=== PATIENT | female | born 2000 | race Caucasian/White ===

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

== ENCOUNTER → 2020-01-06 | Outpatient (CLI) | payer MEDICAID ==
[~2020-01-06] MED LIST changes: +NITR-65 PO
== END ==
LOC: LABNPT 14:52
PROVIDERS: ATTEND Obstetrics & Gynecology
DX: O28.8 Other abnormal findings on antenatal screening of mother (principal)
CPT/HCPCS: 82570; 84156

== ENCOUNTER 2020-01-25 02:40 | Outpatient (CLI) | payer MEDICAID ==
[~2020-01-25] VITALS: Ht 162 cm; Wt 84.5 kg
--- NOTE | 2020-01-25 02:45 | NUR ---
CORONA SPAIN presented to unit via WC from ED, accompanied by STAFF AND FAMILY , with c/o CONTRACTIONS,FLUID LEAKAGE. CORONA SPAIN weighed, gowned, voided, and to bed. EFHM and TOCO applied, VS taken. CORONA SPAIN oriented to bed controls, call light, TV, heat, and A/C controls. FURTHER ASSESSMENTS TO FOLLOW.
[2020-01-25 02:48] VITALS: BP 0/0
[2020-01-25 03:15] LABS: BILIRUBIN,URINE NEGATIVE (NEGATIVE); CLARITY,URINE SL CLOUDY; COLOR,URINE YELLOW; GLUCOSE, URINE (UA) NEGATIVE (NEGATIVE); KETONES,URINE TRACE (NEGATIVE); LEUKOCYTE ESTERASE ,URINE 2+ (NEGATIVE); NITRITE,URINE NEGATIVE (NEGATIVE); PH,URINE 6.5 (5-9); PROTEIN,URINE NEGATIVE (NEGATIVE)
[2020-01-25 03:24] LABS: RBC,URINE 0-2 /HPF
[2020-01-25 03:25] LABS: AMORPHOUS SEDIMENT,UR FEW AMOR URATES /LPF; BACTERIA,URINE MODERATE /HPF; WBC,URINE 25-50 /HPF
--- NOTE | 2020-01-25 03:31 | NUR ---
notified of pt's arrival and complaint. assessment reported, along with u'a results and tracing. No new orders received.
[2020-01-25] MEDS ORDERED: D5 LR IV SOLUTION 1,000 ML IV SCH (03:45)
[2020-01-25 04:20] LABS: BILIRUBIN,URINE NEGATIVE (NEGATIVE); CLARITY,URINE CLEAR; COLOR,URINE AMBER; GLUCOSE, URINE (UA) NEGATIVE (NEGATIVE); KETONES,URINE NEGATIVE (NEGATIVE); LEUKOCYTE ESTERASE ,URINE NEGATIVE (NEGATIVE); NITRITE,URINE NEGATIVE (NEGATIVE); PROTEIN,URINE TRACE (NEGATIVE)
[2020-01-25 04:27] LABS: BASOPHILS % (AUTO) 0 % (0-10); EOSINOPHILS % (AUTO) 0 % (0-10); HEMATOCRIT 28 % (35-52); HEMOGLOBIN 8.8 G/DL (11.5-16.0); LYMPHOCYTES # (AUTO) 1.9 X 10^3 (1.0-4.0); LYMPHOCYTES % (AUTO) 20 % (12-44); MEAN CORPUSCULAR HEMOGLOBIN 25 PG (25-34); MEAN CORPUSCULAR HGB CONC 32 G/DL (32-36); MEAN CORPUSCULAR VOLUME 77 FL (80-99); MEAN PLATELET VOLUME 11.4 FL (7.4-10.4); MONOCYTES % (AUTO) 10 % (0-12); NEUTROPHILS # (AUTO) 6.5 X 10^3 (1.8-7.8); NEUTROPHILS % (AUTO) 69 % (42-75); PLATELET COUNT 173 10^3/uL (130-400); WHITE BLOOD COUNT 9.4 10^3/uL (4.3-11.0)
[2020-01-25 04:48] LABS: BACTERIA,URINE TRACE /HPF; RBC,URINE 0-2 /HPF
--- NOTE | 2020-01-25 04:51 | NUR ---
notified of lab results, sve, tracing. new orders received.
[2020-01-25] MEDS ORDERED: FERR-84 PO (05:21)
[2020-01-25] MEDS ORDERED: DOCO200C4 PO (05:21)
[2020-01-25] MEDS ORDERED: keflex (05:21)
--- NOTE | 2020-01-25 05:35 | NUR ---
Discharge instructions verbalized with pt. pt verbalized understanding. Labor precautions given. Pt denies any concern. pt dc'd home with mother at side. will follow up in office.
--- NOTE | 2020-01-25 08:41 | Discharge Summary ---
Discharge Summary 36 weeks gestation with false labor This patient with a clinical evaluation patient HELIO PEACE MD Jan 25, 2020 08:41
== END 2020-01-25 05:35 | disposition home or self-care (01) ==
LOC: WSo 02:40 → LDRP 02:41 → WSo 05:35
PROVIDERS: ATTEND Obstetrics & Gynecology
DX: O47.03 False labor before 37 completed weeks of gestation, third trimester (principal); Z3A.36 36 weeks gestation of pregnancy
CPT/HCPCS: 36415; 81000; 85025; 87088; 96360; 99214

== ENCOUNTER 2020-01-31 07:00 | Inpatient (IN) | payer MEDICAID ==
[2020-01-31] VITALS (50 sets, daily range): BP systolic 58–175; BP diastolic 52–78
[~2020-01-31] VITALS: Ht 162.5 cm; Wt 84.8 kg
[~2020-01-31 07:00] MED LIST changes: +DOCO200C4 PO; +FERR-84 PO; +keflex
--- NOTE | 2020-01-31 07:03 | NUR ---
CORONA SPAIN admitted to room 3320-1, with an admitting diagnosis of induction of labor, on 01/31/20 from home via ambulation, accompanied by family.CORONA SPAIN introduced to surroundings, call light, bed controls, phone, TV, temperature control, lights, meal times, smoking policy, visitor policy, side rail policy, bathrooms and showers. Patient Rights given to patient in the handbook. CORONA SPAIN verbalizes understanding that [facility] is not responsible for the loss or damage to any personal effects or valuables that are kept in the patients posession during their hospitalization. The following Patient Care Plans were discussed with the patient: Discharge Planning, pain managment, epidural protocol, and oxytocin protocol. CORONA SPAIN verbalizes understanding of Interdisciplinary Patient Education. Patient and/or family were informed about the Rapid Response Team and its purpose.
[2020-01-31] MEDS ORDERED: D5 LR IV SOLUTION 1,000 ML IV ONE (07:46)
[2020-01-31] MEDS ORDERED: OXYTOCIN PRE-MIX DRIP 500 ML IV ONE (07:47)
[2020-01-31] MEDS ORDERED: D5 LR IV SOLUTION 1,000 ML IV SCH (07:59)
[2020-01-31] MEDS ORDERED: OXYTOCIN PRE-MIX DRIP 500 ML IV SCH ×2 (07:59→16:20)
[2020-01-31 08:07] LABS: BASOPHILS % (AUTO) 0 % (0-10); EOSINOPHILS # (AUTO) 0.1 10^3/uL (0.0-0.3); EOSINOPHILS % (AUTO) 1 % (0-10); HEMATOCRIT 28 % (35-52); HEMOGLOBIN 8.8 G/DL (11.5-16.0); LYMPHOCYTES # (AUTO) 1.4 X 10^3 (1.0-4.0); LYMPHOCYTES % (AUTO) 19 % (12-44); MEAN CORPUSCULAR HEMOGLOBIN 24 PG (25-34); MEAN CORPUSCULAR HGB CONC 32 G/DL (32-36); MEAN CORPUSCULAR VOLUME 75 FL (80-99); MEAN PLATELET VOLUME 10.8 FL (7.4-10.4); MONOCYTES # (AUTO) 0.8 X 10^3 (0.0-1.0); MONOCYTES % (AUTO) 11 % (0-12); NEUTROPHILS # (AUTO) 5.2 X 10^3 (1.8-7.8); NEUTROPHILS % (AUTO) 69 % (42-75); PLATELET COUNT 178 10^3/uL (130-400); RED CELL DISTRIBUTION WIDTH 14.6 % (10.0-14.5); WHITE BLOOD COUNT 7.5 10^3/uL (4.3-11.0)
[2020-01-31] MEDS ORDERED: SUFENTA 0.6MCG/ML BUPIVA 0.125 100 ML ONE (08:09)
--- NOTE | 2020-01-31 08:28 | History & Physical ---
History and Physical Date Seen by Provider: Jan 31, 2020 Time Seen by Provider: 07:55 This patient is a 19-year-old 4 para 182 white female with a due date of February 18, 2020. She presents now at 37 weeks plus gestation for induction of labor on the advice of high-risk OB at [facility]. Her is complicated by gestational diabetes for which she is on metformin and blood sugars are adequately controlled. Her is also complicated by macrosomia/LGA. Her is also complicated by a right ureteral stone for which she was transferred to [facility] and 30 and gestation range. A repeat GBS culture was negative. Patient denies bleeding. Patient was seen at [facility] by the high-risk OB department 2 days ago where they recommended delivery before this weekend. Patient is admitted now for induction of labor. Allergies are to Zithromax which causes hives Medications are vitamins and Prozac and metformin Medical social and surgical histories are per the antepartum record HEENT exam is normal Neck supple no lymphadenopathy no thyromegaly Abdomen is gravid soft nontender nondistended Extremities show clubbing cyanosis. There is no Homans sign. Pelvic exam is pending with the most recent pelvic exam in clinic showed a cervix centimeters dilated over 50 percent effaced -1 station vertex presentation soft and mid station cervix Lab work is pending monitor shows a normal heart rate pattern with regular contractions Assessment and plan term in a patient with gestational diabetes that has been well controlled on metformin. Her is complicated by macrosomia and stones as well. Plan is for induction of labor. Patient's previous delivery was complicated by shoulder dystocia we are aware and alert to the potential as is the patient. We are prepared for potential delivery complications. 37+ weeks gestation with gestational diabetes admitted for induction of labor Allergies and Home Medications Allergies Coded Allergies: azithromycin (Verified Allergy, Unknown, HIVES, 01/21/19) Home Medications Nbs269/Iron Fumarate/FA/Dss 1 Each Tablet, 1 EACH PO DAILY, (Reported) Patient Home Medication List Home Medication List Reviewed: Yes HELIO PEACE MD Jan 31, 2020 07:59
[2020-01-31] MEDS ORDERED: fentaNYL INJECTION 100 MCG/2 ML AMP ONE (09:07)
[2020-01-31] MEDS ORDERED: BUPIVACAINE 0.25% 30 ML (SENSORCAINE) VIAL ONE (09:07)
[2020-01-31] MEDS ORDERED: LACTATED RINGERS 1,000 ML IV ONE (11:27)
[2020-01-31] MEDS ORDERED: EPIDURAL (SUFENTA 0.6MCG/ML BUPIVA 0.125%) 100 ML BAG EPI SCH (11:30)
[2020-01-31] MEDS ORDERED: CATHETER FLUSH 10 ML SYR IV PRN (11:30)
[2020-01-31] MEDS ORDERED: NALOXONE 0.4 MG/ML 1 ML (NARCAN) VIAL IV PRN (11:30)
[2020-01-31] MEDS ORDERED: diphenhydrAMINE 50 MG/ML INJ (BENADRYL) IV PRN (11:30)
[2020-01-31] MEDS ORDERED: ONDANSETRON 4 MG/2 ML (SDV) Z0FRAN IV PRN (11:30)
[2020-01-31] MEDS ORDERED: IBUPROFEN 800 MG (MOTRIN) TAB PO ONE (16:14)
[2020-01-31] MEDS ORDERED: MEASLES,MUMPS,RUBELLA 1 EA INJ SC ONE (16:30)
[2020-01-31] MEDS ORDERED: oxyCODONE/APAP 5/325MG (PERCOCET 5) TABLET PO PRN (16:30)
[2020-01-31] MEDS ORDERED: BENZOCAINE/MENTHOL (DERMOPLAST) 60 ML CAN TP PRN (16:30)
[2020-01-31] MEDS ORDERED: KETOROLAC 30 MG/ML VIAL IVP SCH (16:30)
[2020-01-31] MEDS ORDERED: TETANUS,DIPTH,PERTUSS P/F (BOOSTRIX) 0.5 ML VIAL IM ONE (16:30)
[2020-01-31] MEDS ORDERED: ONDANSETRON 4 MG/2 ML (SDV) Z0FRAN IVP PRN (16:30)
[2020-01-31] MEDS: DOCUSATE SODIUM 100 MG (COLACE) CAP PO SCH (20:24)
--- NOTE | 2020-01-31 20:38 | NUR ---
pt assisted to the bathroom. positive void. pt ambulated back to the bed. assessment completed. pt c/o cramping. percocet given.
--- NOTE | 2020-02-01 00:28 | OPERATIVE REPORT ---
DATE OF SERVICE: 01/31/2020 DELIVERY NOTE The patient delivered by term spontaneous vaginal delivery at 37 and 3/7 weeks' gestation a viable male with Apgars of 9 and 9 at 1 and 5 minutes respectively, weight of 9 pounds 5 ounces, time of 1553. Had cord blood pH was 7.26. The infant was delivered over an intact perineum under epidural analgesia. We did encounter a [id number] shoulder dystocia after delivery of the head. It was approximately 45 seconds to delivery of the anterior shoulder, which was the left. With the head delivered and the shoulder somewhat locked behind the pubic bone, Hugo was employed as well as suprapubic pressure from the patient's right to her left and then finally Colbert maneuver was used to rotate the baby's anterior shoulder from the patient's right to her left, which was anterior to the baby. At approximately 45 degrees rotation, the shoulder released and then the delivery was completed spontaneous and atraumatic. The infant was bulb suctioned on completion of delivery. The had spontaneous cry, moved all extremities, had excellent tone, reflexes, and was quickly pink. Again, Apgars were 9 and 9 at 1 and 5 minutes respectively. Infant was experiencing some discoloration of the forehead and caput secondary to the tight pressure and very rapid descent from the -0 station to delivery with 5 or 6 pushes. After the umbilical cord was pulseless, it was doubly clamped, the father cut the cord, the baby was taken to the warmer at mom's request. The placenta delivered spontaneously Fontaine after obtaining cord bloods. The cervix, vagina, rectum, and perineum were examined and found intact. Sponge and needle counts were correct on completion of delivery and the post-delivery exam. Estimated blood loss was around 200 mL. The patient tolerated the delivery and the exam well and remained in the LDR for recovery. The baby remained with the mom. Job ID: [id number] DocumentID: [id number] Dictated Date: 01/31/2020 16:12:30 Fire Sprinkler Designer Date: 02/01/2020 00:27:11 Dictated By: HELIO PEACE MD MTDD
[2020-02-01] MEDS ORDERED: IBUPROFEN 800 MG (MOTRIN) TAB PO ONE ×2 (00:41→05:38)
[2020-02-01] MEDS: IBUPROFEN 800 MG (MOTRIN) TAB PO SCH ×4 (00:52→20:05)
[2020-02-01 01:09] VITALS: BP 93/55
[2020-02-01 05:50] VITALS: BP 106/67
[2020-02-01 09:15] VITALS: BP 118/72
--- NOTE | 2020-02-01 10:34 | Progress Note ---
Standard Progress Note Progress Notes/Assess & Plan Date Seen by a Provider: Feb 01, 2020 Time Seen by a Provider: 10:33 Progress/Assessment & Plan This patient is without complaint. She is ambulating, voiding, tolerating oral intake well and has good pain control. Patient denies chest pain, denies shortness of breath, denies vomiting, and denies headache. Vital Signs 01/31/20 02/01/20 14:35 05:50 Temp 37.0 Pulse 94 Resp 20 B/P (MAP) 106/67 (80) Pulse Ox 95 O2 Delivery Room Air Vital signs are stable. Patient is afebrile. The abdomen is benign. The fundus is firm below the umbilicus and nontender. Extremities show no clubbing cyanosis. Homans sign. There is some pretibial pitting edema that is normal. Assessment and plan day number 1 status post term spontaneous vaginal delivery at 37-3/7 weeks gestation. Patient doing well and will receive routine convalescence care Final Diagnosis 37+ week spontaneous vaginal delivery HELIO PEACE MD Feb 01, 2020 10:34
[2020-02-01] MEDS ORDERED: OXYC1TAB87 PO (10:36)
[2020-02-01] MEDS ORDERED: DCS100C PO (10:36)
[2020-02-01] MEDS ORDERED: IBUP-1780 PO (10:36)
--- NOTE | 2020-02-01 10:37 | Discharge Inst-Surgical ---
Discharge Inst-Surgical Depart Medication/Instructions New, Converted or Re-Newed RX: RX on Chart Consults/Follow Up Patient Instructions: As directed Orders & Referrals Follow Up Appt: Call to make follow up appt. for patient in 4 weeks. Activity Per routine post vaginal delivery instructions. Please call in RX to patient pharmacy. Diet as tolerated Patient may shower or tub bathe as desired. Activity Activity as Tolerated: No Diet Discharge Diet: No Restrictions HELIO PEACE MD Feb 01, 2020 10:37
--- NOTE | 2020-02-01 11:37 | Anesthesia-Regional Post-Op ---
Regional Patient Condition Mental Status: Alert, Oriented x3 Circulation: Same as Pre-Op Headache: Absent Sensation: Full Recovery Motor Block: Absent Post Op Complications Complications None Follow Up Care/Instructions Patient Instructions None needed. Anesthesia/Patient Condition Patient is doing well, no complaints, stable vital signs, no apparent adverse anesthesia problems. No complications reported per nursing. ORLANDO CONDE CRNA Feb 01, 2020 11:37
[2020-02-01] MEDS: DOCUSATE SODIUM 100 MG (COLACE) CAP PO SCH ×2 (13:53→20:05)
[2020-02-01 20:00] VITALS: BP 114/64
--- NOTE | 2020-02-01 20:00 | NUR ---
pt sitting up in bed, just finished in the shower. assessment completed. pt denies any concerns or needs. will continue to monitor.
[2020-02-02] MEDS: IBUPROFEN 800 MG (MOTRIN) TAB PO SCH ×2 (01:50→08:41)
[2020-02-02 01:51] VITALS: BP 129/67
[2020-02-02 08:40] VITALS: BP 119/66
[2020-02-02] MEDS: DOCUSATE SODIUM 100 MG (COLACE) CAP PO SCH (08:41)
--- NOTE | 2020-02-02 08:45 | NUR ---
PT IN BED, HOLDING . VS OBTAINED. MEDS GIVEN PO; SEE EMAR FOR FURTHER. INITIAL SHIFT ASSESSMENT COMPLETED; SEE INTERVENTION. FRESH ICE WATER PROVIDED. WHITE BOARD UPDATED. PT DENIES ANY NEEDS OR QUESTIONS AT THIS TIME. CALL LIGHT WITHIN REACH, BREAKFAST AT THE BEDSIDE.
--- NOTE | 2020-02-02 11:43 | NUR ---
RXS CALLED INTO [facility] - SPOKE WITH KADI ZUNIGA.
--- NOTE | 2020-02-02 12:00 | NUR ---
DISCHARGE PAPERS PROVIDED AND REVIEWED WITH PT, PT VERBALIZES UNDERSTANDING AND DENIES ANY QUESTIONS AT THIS TIME. PAPER SIGNED. WRITTEN RX ALSO PROVIDED AT THIS TIME. PT VOICES THAT SHE RECEIVED THE TDAP VACCINE APPROX A MONTH AGO. LUNCH TRAY DELIVERED TO BEDSIDE. SUPPLIES PROVIDED PER REQUEST. NO FURTHER NEEDS VOICED. CALL LIGHT WITHIN REACH.
--- NOTE | 2020-02-02 13:35 | NUR ---
DR. PEACE HERE TO SEE PT.
--- NOTE | 2020-02-02 13:37 | Progress Note ---
Standard Progress Note Progress Notes/Assess & Plan Date Seen by a Provider: Feb 02, 2020 Time Seen by a Provider: 13:36 Progress/Assessment & Plan This patient is without complaint. She is ambulating, voiding, tolerating oral intake well and has good pain control. Patient denies chest pain, denies shortness of breath, denies vomiting, and denies headache. Vital Signs 01/31/20 02/01/20 14:35 05:50 Temp 37.0 Pulse 94 Resp 20 B/P (MAP) 106/67 (80) Pulse Ox 95 O2 Delivery Room Air Vital signs are stable. Patient is afebrile. The abdomen is benign. The fundus is firm below the umbilicus and nontender. Extremities show no clubbing cyanosis. Homans sign. There is some pretibial pitting edema that is normal. Assessment and plan day number 1 status post term spontaneous vaginal delivery at 37-3/7 weeks gestation. Patient doing well and will receive routine convalescence care February 02, 2020 Patient is without complaint. She is ambulating, voiding, tolerating oral intake well and has good pain control. Patient is requesting discharge home. Vital Signs Date Time Temp Pulse Resp B/P (MAP) Pulse Ox O2 Delivery O2 Flow Rate FiO2 02/02/20 08:40 37.0 75 18 119/66 (83) 96 Room Air 02/02/20 01:51 36.8 92 20 129/67 (87) Room Air 02/01/20 20:00 36.6 89 20 114/64 (81) Room Air Patient vital signs are stable she is afebrile. The abdomen is benign. Fundus is firm below the umbilicus and nontender. Extreme show no clubbing cyanosis. There is no Homans sign. There is some pretibial pitting edema that is within normal limits. Assessment and plan day number 2 status post term spontaneous vaginal delivery doing well. Plan is for discharge home with follow-up in clinic Final Diagnosis 37+ week spontaneous vaginal delivery HELIO PEACE MD Feb 02, 2020 13:37
--- NOTE | 2020-02-02 14:30 | NUR ---
PT DISCHARGED FROM -310 TO PERSONAL AUTO VIA AMBULATORY IN STABLE CONDITION ACC BY S/O, VERONICA AND Gustavo GAMEZ RN.
--- OUTSIDE RECORDS SUMMARY | 2020-02-04 04:42 | XMS REPORT | Continuity of Care Document ---
Author Organization Unknown Address Unknown Phone Unavailable Allergies Active Description Code Type Severity Reaction Onset Reported/Identified Relationship to Patient Clinical Status Yes azithromycin [id number] Drug Allergy Unknown HIVES 01/21/2019 Medications There is no data. Problems Date Dx Coded Attending Type Code Diagnosis Diagnosed By 01/22/2019 NALINI AUSTIN, CHRISTIN T Ot O20. 0 THREATENED 01/22/2019 NALINI AUSTIN, CHRISTIN T Ot O20. 9 HEMORRHAGE IN EARLY , UNSPECIFI 01/22/2019 NALINI AUSTIN, CHRISTIN T Ot Z3A. 01 LESS THAN 8 WEEKS GESTATION OF 01/22/2019 NALINI AUSTIN CHRISTIN T Ot Z88. 1 ALLERGY STATUS TO OTHER ANTIBIOTIC AGENT 01/23/2019 NALINI AUSTIN, CHRISTIN T Ot O20. 0 THREATENED 01/23/2019 NALINI AUSTIN, CHRISTIN T Ot O20. 9 HEMORRHAGE IN EARLY , UNSPECIFI 01/23/2019 NALINI AUSTIN, CHRISTIN T Ot Z3A. 01 LESS THAN 8 WEEKS GESTATION OF 01/23/2019 NALINI AUSTIN CHRISTIN T Ot Z88. 1 ALLERGY STATUS TO OTHER ANTIBIOTIC AGENT 05/06/2019 PHILLIP AUSTIN SAMY Ot O20.9 HEMORRHAGE IN EARLY , UNSPECIFI 05/06/2019 PHILLIP AUSTIN SAMY Ot Z3A.01 LESS THAN 8 WEEKS GESTATION OF 05/06/2019 PHILLIP AUSTIN SAMY Ot Z88.1 ALLERGY STATUS TO OTHER ANTIBIOTIC AGENT 05/09/2019 PHILLIP AUSTIN SAMY Ot O20.9 HEMORRHAGE IN EARLY , UNSPECIFI 05/09/2019 PHILLIP AUSTIN, SAMY Ot Z3A.01 LESS THAN 8 WEEKS GESTATION OF 05/09/2019 PHILLIP AUSTIN SAMY Ot Z88.1 ALLERGY STATUS TO OTHER ANTIBIOTIC AGENT 07/15/2019 CLYDE DUARTE, HUY Mckeon Ot M54. 5 LOW BACK PAIN 07/15/2019 HUY TANG MD Ot O23. 41 UNSP INFCT OF URINARY TRACT IN 07/15/2019 HUY TANG MD Ot Z3A. 00 WEEKS OF GESTATION OF NOT SPEC 07/15/2019 CLYDE DUARTE, HUY Mckeon Ot Z88. 1 ALLERGY STATUS TO OTHER ANTIBIOTIC AGENT 07/17/2019 CLYDE DUARTE, HUY Mckeon Ot M54. 5 LOW BACK PAIN 07/17/2019 CLYDE DUARTE, HUY Mckeon Ot O23. 41 UNSP INFCT OF URINARY TRACT IN 07/17/2019 CLYDE DUARTE, HUY Mckeon Ot Z3A. 00 WEEKS OF GESTATION OF NOT SPEC 07/17/2019 CLYDE DUARTE, HUY Mckeon Ot Z88. 1 ALLERGY STATUS TO OTHER ANTIBIOTIC AGENT 10/03/2019 CALVIN DUARTE, RHODA T Ot O26.892 OT RELATED CONDITIONS, SECOND 10/03/2019 CALVIN DUARTE, RHODA T Ot R42 DIZZINESS AND GIDDINESS 10/03/2019 CALVIN DUARTE, RHODA T Ot R51 HEADACHE 10/03/2019 CALVIN DUARTE, RHODA T Ot Z3A.20 20 WEEKS GESTATION OF 10/03/2019 CALVIN DUARTE, RHODA T Ot Z88.1 ALLERGY STATUS TO OTHER ANTIBIOTIC AGENT 10/07/2019 CALVIN DUARTE, RHODA T Ot O26.892 OTH RELATED CONDITIONS, SECOND 10/07/2019 CALVIN DUARTE, RHODA T Ot R42 DIZZINESS AND GIDDINESS 10/07/2019 CALVIN DUARTE, RHODA T Ot R51 HEADACHE 10/07/2019 CALVIN DUARTE, RHODA T Ot Z3A.20 20 WEEKS GESTATION OF 10/07/2019 CALVIN DUARTE, RHODA T Ot Z88.1 ALLERGY STATUS TO OTHER ANTIBIOTIC AGENT 11/01/2019 HELIO PEAEC MD Ot K59.00 CONSTIPATION, UNSPECIFIED 11/01/2019 HELIO PEACE MD Ot O26.892 OTH RELATED CONDITIONS, SECOND 11/01/2019 HELIO PEACE MD Ot Z3A.26 26 WEEKS GESTATION OF 11/02/2019 HELIO PEACE MD Ot N88.8 OTHER SPECIFIED NONINFLAMMATORY DISORDER 11/06/2019 HELIO PEACE MD Ot K59.00 CONSTIPATION, UNSPECIFIED 11/06/2019 HELIO PEACE MD Ot O26.892 OTH RELATED CONDITIONS, SECOND 11/06/2019 HELIO PEACE MD, Ot Z3A.26 26 WEEKS GESTATION OF 11/08/2019 HELIO PEACE MD, Ot N88.8 OTHER SPECIFIED NONINFLAMMATORY DISORDER 11/21/2019 TRACY ZARAGOZA MD Ot M54.9 DORSALGIA, UNSPECIFIED 11/21/2019 TRACY ZARAGOZA MD, Ot M62.830 MUSCLE SPASM OF BACK 11/21/2019 TRACY ZARAGOZA MD Ot O99.89 OTH DISEASES AND CONDITIONS COMPL PREG/C 11/21/2019 TRACY ZARAGOZA MD, Ot Z3A.27 27 WEEKS GESTATION OF 11/21/2019 TRACY ZARAGOZA MD, Ot Z88.1 ALLERGY STATUS TO OTHER ANTIBIOTIC AGENT 11/26/2019 TRACY ZARAGOZA MD, Ot M54.9 DORSALGIA, UNSPECIFIED 11/26/2019 TRACY ZARAGOZA MD, Ot M62.830 MUSCLE SPASM OF BACK 11/26/2019 TRACY ZARAGOZA MD Ot O99.89 OTH DISEASES AND CONDITIONS COMPL PREG/C 11/26/2019 TRACY ZARAGOZA MD, Ot Z3A.27 27 WEEKS GESTATION OF 11/26/2019 TRACY ZARAGOZA MD, Ot Z88.1 ALLERGY STATUS TO OTHER ANTIBIOTIC AGENT 12/18/2019 HELIO PEACE MD Ot O28.8 OTHER ABNORMAL FINDINGS ON SCR 12/19/2019 HELIO PEACE MD Ot E86.0 DEHYDRATION 12/19/2019 HELIO PEACE MD, Ot N12 TUBULO-INTERSTITIAL NEPHRITIS, NOT SPCF 12/19/2019 HELIO PEACE MD, Ot O23.03 INFECTIONS OF KIDNEY IN , THIRD 12/19/2019 HELIO PEACE MD, Ot O24.419 GESTATIONAL DIABETES MELLITUS IN PREGNAN 12/19/2019 HELIO PEACE MD, Ot O99.283 ENDO, NUTRITIONAL AND METAB DISEASES COM 12/19/2019 HELIO PEACE MD, Ot Z3A.32 32 WEEKS GESTATION OF 12/27/2019 HELIO PEACE MD, Ot 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 12/27/2019 HELIO PEACE MD, Ot O99.89 OT DISEASES AND CONDITIONS COMPL PREG/C 12/27/2019 HEILO PEACE MD, Ot Z3A.32 32 WEEKS GESTATION OF 12/27/2019 HELIO PEACE MD, Ot 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 Results Test Result Range SUREPATH PAP RFX HPV mRNA E6/E7 - 10:59 CLINICAL INFORMATION: NRG LMP: NRG PREV. PAP: NRG PREV. BX: NRG SOURCE: NRG STATEMENT OF ADEQUACY: NR INTERPRETATION/RESULT: NR FUSING MACHINE TENDER: NRG COMMENT NR Automated blood complete blood count (he mogram) panel - 01/21/19 23:28 Blood leukocytes automated count (number/volume) 10.6 10*3/uL 4.3-11.0 Blood erythrocytes automated count (number/volume) 4.68 10*6/uL 4.35-5.85 Venous blood hemoglobin measurement (mass/volume) 13.0 g/dL 11.5-16.0 Blood hematocrit (volume fraction) 40 % 35-52 Automated erythrocyte mean corpuscular volume 85 [ foz_us] 80-99 Automated erythrocyte mean corpuscular h emoglobin (mass per erythrocyte) 28 pg 25-34 Automated erythrocyte mean corpuscular h emoglobin concentration measurement (mass/volume) 33 g/dL 32-36 Automated erythrocyte distribution width ratio 13. 5 % 10.0- 14.5 Automated blood platelet count (count/volume) 251 10*3/uL 130-400 Automated blood platelet mean volume measurement 10.6 [foz_us] 7.4-10.4 Whole blood basic metabolic panel - 12/29 04/14 23:28 Serum or plasma sodium measurement (moles/volume) 141 mmol/L 135-145 Serum or plasma potassium measurement (moles/volume) 3.8 mmol/L 3.6-5.0 Serum or plasma chloride measurement (moles/volume) 106 mmol/L 98-107 Carbon dioxide 21 mmol/L 21-32 Serum or plasma anion gap determination (moles/volume) 14 mmol/L 5-14 Serum or plasma urea nitrogen measurement (mass/volume ) 6 mg/dL 7-18 Serum or plasma creatinine measurement (mass/volume) 0.61 mg/dL 0.60-1.30 Serum or plasma urea nitrogen/creatinine mass ratio 10 NRG Serum or plasma creatinine measurement w ith calculation of estimated glomerular filtration rate > NRG Serum or plasma glucose measurement (mass/volume) 109 mg/dL 70-105 Serum or plasma calcium measurement (mass/volume) 9.0 mg/dL 8.5-10.1 Serum or plasma choriogonadotropin measu rement (units/volume) - 01/21/19 23:28 Serum or plasma choriogonadotropin measurement (units/ volume) 843 m[iU]/mL <5 Chlamydia trachomatis DNA detection by p robe and signal amplification method - 01/21/19 23:45 Chlamydia trachomatis DNA detection by p robe and target amplification method Not Detected Not Detected Neisseria gonorrhoeae DNA detection by p robe and signal amplification method - 01/21/19 23:45 Gonorrhea amp DNA-urine Not Detected No t Detected HCG, QUANTITATIVE - 01/22/19 10:45 HCG, TOTAL, QN 850 mIU/mL NR PATHOLOGY REPORT (TISSUE PAHOLOGY) - 14:00 A SOURCE NRG A GROSS DESCRIPTION NRG A DIAGNOSIS NRG CLINICAL INFORMATION NRG PATHOLOGIST NRG HCG, QUANTITATIVE - 01/24/19 09:15 HCG, TOTAL, QN 103 mIU/mL NRG CULTURE, THROAT - 02/12/19 14:38 CULTURE, THROAT SEE NOTE NRG CULTURE, URINE - 03/22/19 11:07 CULTURE, URINE, ROUTINE SEE NOTE NRG TSH w/ FREE T4 - 03/22/19 11:19 TSH 1.01 mIU/L NRG T4, FREE 1.1 ng/dL 0.8-1.4 TEST, SERUM (QUAL) - 04/29/19 16:59 HCG, TOTAL, QL POSITIVE See Note: GC/CHLAMYDIA (SWAB OR URINE)-RAPID - 03/15 15:36 CHLAMYDIA TRACHOMATIS RNA, TMA NOT DETECTED NOT DETECTED NEISSERIA GONORRHOEAE RNA, TMA NOT DETECTED NOT DETECTED COMMENT NRG HCG, QUANTITATIVE - 04/30/19 16:09 HCG, TOTAL, QN 85 mIU/mL NRG HCG, QUANTITATIVE - 05/02/19 14:48 HCG, TOTAL, QN 93 mIU/mL NRG HCG, QUANTITATIVE - 05/06/19 15:01 HCG, TOTAL, QN 74 mIU/mL NRG Complete blood count (CBC) with automate d white blood cell (WBC) differential - 05/06/19 18:45 Blood leukocytes automated count (number/volume) 9.6 10*3/uL 4.3-11.0 Blood erythrocytes automated count (number/volume) 4.64 10*6/uL 4.35-5.85 Venous blood hemoglobin measurement (mass/volume) 13.3 g/dL 11.5-16.0 Blood hematocrit (volume fraction) 39 % 35-52 Automated erythrocyte mean corpuscular volume 85 [ foz_us] 80-99 Automated erythrocyte mean corpuscular h emoglobin (mass per erythrocyte) 29 pg 25-34 Automated erythrocyte mean corpuscular h emoglobin concentration measurement (mass/volume) 34 g/dL 32-36 Automated erythrocyte distribution width ratio 13. 2 % 10.0- 14.5 Automated blood platelet count (count/volume) 238 10*3/uL 130-400 Automated blood platelet mean volume measurement 10.5 [foz_us] 7.4-10.4 Automated blood neutrophils/100 leukocytes 64 % 42-75 Automated blood lymphocytes/100 leukocytes 27 % 12-44 Blood monocytes/100 leukocytes 7 % 0-12 Automated blood eosinophils/100 leukocytes 1 % 0-10 Automated blood basophils/100 leukocytes 0 % 0-10 Blood neutrophils automated count (number/volume) 6.2 10*3 1.8-7.8 Blood lymphocytes automated count (number/volume) 2.5 10*3 1.0-4.0 Blood monocytes automated count (number/volume) 0. 7 10*3 0.0-1.0 Automated eosinophil count 0.1 10*3/uL 0 .0-0.3 Automated blood basophil count (count/volume) 0.0 10*3/uL 0.0-0.1 Serum or plasma choriogonadotropin measu rement (units/volume) - 05/06/19 18:45 Serum or plasma choriogonadotropin measurement (units/ volume) 50 m[iU]/mL <5 Rh - 05/06/19 18:45 WRISTBAND NUMBER TNP NRG Rh D AG - POSITIVE NRG HCG, QUANTITATIVE - 05/13/19 14:46 HCG, TOTAL, QN <2 mIU/mL NRG PROGESTERONE - 06/13/19 14:56 PROGESTERONE 27.5 ng/mL NRG HCG, QUANTITATIVE - 06/13/19 14:56 HCG, TOTAL, QN 803 mIU/mL NRG Complete urinalysis with reflex to cultu re - 07/15/19 07:04 Urine color determination YELLOW NRG Urine clarity determination CLOUDY NR G Urine pH measurement by test strip 6.0 5-9 Specific gravity of urine by test strip 1.025 1.016-1.022 Urine protein assay by test strip, semi-quantitative NEGATIVE NEGATIVE Urine glucose detection by automated test strip NE GATIVE NEGATIVE Erythrocytes detection in urine sediment by light micr oscopy 3+ NEGATIVE Urine ketones detection by automated test strip 3+ NEGATIVE Urine nitrite detection by test strip NEGATIVE NEGATIVE Urine total bilirubin detection by test strip NEGA TIVE NEGATIVE Urine urobilinogen measurement by automated test strip (mass/volume) 0.2 mg/dL NORMAL Urine leukocyte esterase detection by dipstick 2+ NEGATIVE Automated urine sediment erythrocyte cou nt by microscopy (number/high power field) [HPF] NRG Automated urine sediment leukocyte count by microscopy (number/high power field) [HPF] NRG Bacteria detection in urine sediment by light microsco py MODERATE NRG Squamous epithelial cells detection in u rine sediment by light microscopy 10-25 NRG Crystals detection in urine sediment by light microsco py NONE NRG Casts detection in urine sediment by light microscopy NONE NRG Mucus detection in urine sediment by light microscopy NONE NRG Complete urinalysis with reflex to culture YES NRG Bacterial urine culture - 07/15/19 07:04 Bacterial urine culture 3 OR MORE NRG COLONY COUNT >100,000/ML NRG FTX;REPORTABLE GRAM POSITIVE ISOLATES; SUGGESTING NRG FREE TEXT ENTRY 2 PROBABLE COLLECTION CONTAMINATIO N WITH NRG FREE TEXT ENTRY 3 SKIN NACHO. NO SUSCEPTIBILITY PE RFORMED. NRG Complete blood count (CBC) with automate d white blood cell (WBC) differential - 07/15/19 07:14 Blood leukocytes automated count (number/volume) 12.8 10*3/uL 4.3-11.0 Blood erythrocytes automated count (number/volume) 4.52 10*6/uL 4.35-5.85 Venous blood hemoglobin measurement (mass/volume) 13.6 g/dL 11.5-16.0 Blood hematocrit (volume fraction) 39 % 35-52 Automated erythrocyte mean corpuscular volume 85 [ foz_us] 80-99 Automated erythrocyte mean corpuscular h emoglobin (mass per erythrocyte) 30 pg 25-34 Automated erythrocyte mean corpuscular h emoglobin concentration measurement (mass/volume) 35 g/dL 32-36 Automated erythrocyte distribution width ratio 13. 3 % 10.0- 14.5 Automated blood platelet count (count/volume) 221 10*3/uL 130-400 Automated blood platelet mean volume measurement 10.8 [foz_us] 7.4-10.4 Automated blood neutrophils/100 leukocytes 69 % 42-75 Automated blood lymphocytes/100 leukocytes 22 % 12-44 Blood monocytes/100 leukocytes 9 % 0-12 Automated blood eosinophils/100 leukocytes 1 % 0-10 Automated blood basophils/100 leukocytes 0 % 0-10 Blood neutrophils automated count (number/volume) 8.8 10*3 1.8-7.8 Blood lymphocytes automated count (number/volume) 2.8 10*3 1.0-4.0 Blood monocytes automated count (number/volume) 1. 1 10*3 0.0-1.0 Automated eosinophil count 0.1 10*3/uL 0 .0-0.3 Automated blood basophil count (count/volume) 0.0 10*3/uL 0.0-0.1 Comprehensive metabolic panel - 07/15/19 07:14 Serum or plasma sodium measurement (moles/volume) 136 mmol/L 135-145 Serum or plasma potassium measurement (moles/volume) 3.7 mmol/L 3.6-5.0 Serum or plasma chloride measurement (moles/volume) 97 mmol/L 98-107 Carbon dioxide 19 mmol/L 21-32 Serum or plasma anion gap determination (moles/volume) 20 mmol/L 5-14 Serum or plasma urea nitrogen measurement (mass/volume ) 9 mg/dL 7-18 Serum or plasma creatinine measurement (mass/volume) 0.52 mg/dL 0.60-1.30 Serum or plasma urea nitrogen/creatinine mass ratio 17 NRG Serum or plasma creatinine measurement w ith calculation of estimated glomerular filtration rate > NRG Serum or plasma glucose measurement (mass/volume) 116 mg/dL 70-105 Serum or plasma calcium measurement (mass/volume) 9.6 mg/dL 8.5-10.1 Serum or plasma total bilirubin measurement (mass/volu me) 0.4 mg/dL 0.1-1.0 Serum or plasma alkaline phosphatase ortiz surement (enzymatic activity/volume) 56 U/L 40-136 Serum or plasma aspartate aminotransfera se measurement (enzymatic activity/volume) 16 U/L 5-34 Serum or plasma alanine aminotransferase measurement (enzymatic activity/volume) 12 U/L 0-55 Serum or plasma protein measurement (mass/volume) 7.5 g/dL 6.4-8.2 Serum or plasma albumin measurement (mass/volume) 4.6 g/dL 3.2-4.5 Lipase - 07/15/19 07:14 Lipase 32 U/L 8-78 Bacteria identification in genital speci men by aerobe culture - 07/15/19 07:38 QUANTITY OF GROWTH . NRG Bacteria identification in genital specimen by aerobe culture UVF NRG Microscopic examination by wet preparati on - 07/15/19 07:38 WET PREP RESULTS NO YEAST OBSERVED, NO TRICH OMONAS OBSERVED NRG Neisseria gonorrhoeae DNA detection by p robe and signal amplification method - 07/15/19 07:38 Gonorrhea amp DNA-urine Not Detected No t Detected Chlamydia trachomatis DNA detection by p robe and signal amplification method - 07/15/19 07:38 Chlamydia trachomatis DNA detection by p robe and target amplification method Not Detected Not Detected Complete urinalysis with reflex to cultu re - 10/03/19 14:30 Urine color determination YELLOW NRG Urine clarity determination CLOUDY NR G Urine pH measurement by test strip 6.0 5-9 Specific gravity of urine by test strip 1.025 1.016-1.022 Urine protein assay by test strip, semi-quantitative NEGATIVE NEGATIVE Urine glucose detection by automated test strip TR FLORECITA NEGATIVE Erythrocytes detection in urine sediment by light micr oscopy NEGATIVE NEGATIVE Urine ketones detection by automated test strip TR FLORECITA NEGATIVE Urine nitrite detection by test strip NEGATIVE NEGATIVE Urine total bilirubin detection by test strip NEGA TIVE NEGATIVE Urine urobilinogen measurement by automated test strip (mass/volume) 0.2 mg/dL < = 1.0 Urine leukocyte esterase detection by dipstick 1+ NEGATIVE Automated urine sediment erythrocyte cou nt by microscopy (number/high power field) NONE NRG Automated urine sediment leukocyte count by microscopy (number/high power field) [HPF] NRG Bacteria detection in urine sediment by light microsco py FEW NRG Squamous epithelial cells detection in u rine sediment by light microscopy 25-50 NRG Crystals detection in urine sediment by light microsco py PRESENT NRG Casts detection in urine sediment by light microscopy NONE NRG Mucus detection in urine sediment by light microscopy MODERATE NRG Complete urinalysis with reflex to culture YES NRG Calcium oxalate crystals detection in ur ine sediment by light microscopy FEW NRG Bacterial urine culture - 10/03/19 14:30 Bacterial urine culture 3 OR MORE NRG COLONY COUNT >100,000/ML NRG FTX;REPORTABLE (GRAM POSITIVE) SUGGESTING PROBABLE NRG FREE TEXT ENTRY 2 COLLECTION CONTAMINATION WITH SK IN NRG FREE TEXT ENTRY 3 NACHO. NO SUSCEPTIBILITY PERFOR MED NRG Comprehensive metabolic panel - 10/03/19 14:53 Serum or plasma sodium measurement (moles/volume) 135 mmol/L 135-145 Serum or plasma potassium measurement (moles/volume) 3.7 mmol/L 3.6-5.0 Serum or plasma chloride measurement (moles/volume) 102 mmol/L 98-107 Carbon dioxide 21 mmol/L 21-32 Serum or plasma anion gap determination (moles/volume) 12 mmol/L 5-14 Serum or plasma urea nitrogen measurement (mass/volume ) 4 mg/dL 7-18 Serum or plasma creatinine measurement (mass/volume) 0.38 mg/dL 0.60-1.30 Serum or plasma urea nitrogen/creatinine mass ratio 11 NRG Serum or plasma creatinine measurement w ith calculation of estimated glomerular filtration rate > NRG Serum or plasma glucose measurement (mass/volume) 98 mg/dL 70-105 Serum or plasma calcium measurement (mass/volume) 9.2 mg/dL 8.5-10.1 Serum or plasma total bilirubin measurement (mass/volu me) 0.3 mg/dL 0.1-1.0 Serum or plasma alkaline phosphatase ortiz surement (enzymatic activity/volume) 59 U/L 40-136 Serum or plasma aspartate aminotransfera se measurement (enzymatic activity/volume) 19 U/L 5-34 Serum or plasma alanine aminotransferase measurement (enzymatic activity/volume) 13 U/L 0-55 Serum or plasma protein measurement (mass/volume) 6.6 g/dL 6.4-8.2 Serum or plasma albumin measurement (mass/volume) 3.6 g/dL 3.2-4.5 CALCIUM CORRECTED 9.5 mg/dL 8.5-10.1 Magnesium - 10/03/19 14:53 Magnesium 1.6 mg/dL 1.6-2.4 Complete blood count (CBC) with automate d white blood cell (WBC) differential - 10/03/19 14:53 Blood leukocytes automated count (number/volume) 7.3 10*3/uL 4.3-11.0 Blood erythrocytes automated count (number/volume) 3.57 10*6/uL 4.35-5.85 Venous blood hemoglobin measurement (mass/volume) 10.9 g/dL 11.5-16.0 Blood hematocrit (volume fraction) 31 % 35-52 Automated erythrocyte mean corpuscular volume 86 [ foz_us] 80-99 Automated erythrocyte mean corpuscular h emoglobin (mass per erythrocyte) 31 pg 25-34 Automated erythrocyte mean corpuscular h emoglobin concentration measurement (mass/volume) 36 g/dL 32-36 Automated erythrocyte distribution width ratio 13. 4 % 10.0- 14.5 Automated blood platelet count (count/volume) 145 10*3/uL 130-400 Automated blood platelet mean volume measurement 10.8 [foz_us] 7.4-10.4 Automated blood neutrophils/100 leukocytes 76 % 42-75 Automated blood lymphocytes/100 leukocytes 11 % 12-44 Blood monocytes/100 leukocytes 13 % 0-12 Automated blood eosinophils/100 leukocytes 0 % 0-10 Automated blood basophils/100 leukocytes 0 % 0-10 Blood neutrophils automated count (number/volume) 5.6 10*3 1.8-7.8 Blood lymphocytes automated count (number/volume) 0.8 10*3 1.0-4.0 Blood monocytes automated count (number/volume) 0. 9 10*3 0.0-1.0 Automated eosinophil count 0.0 10*3/uL 0 .0-0.3 Automated blood basophil count (count/volume) 0.0 10*3/uL 0.0-0.1 Complete urinalysis with reflex to cultu re - 11/02/19 08:00 Urine color determination YELLOW NRG Urine clarity determination CLOUDY NR G Urine pH measurement by test strip 7.0 5-9 Specific gravity of urine by test strip 1.015 1.016-1.022 Urine protein assay by test strip, semi-quantitative NEGATIVE NEGATIVE Urine glucose detection by automated test strip NE GATIVE NEGATIVE Erythrocytes detection in urine sediment by light micr oscopy TRACE-I NEGATIVE Urine ketones detection by automated test strip NE GATIVE NEGATIVE Urine nitrite detection by test strip NEGATIVE NEGATIVE Urine total bilirubin detection by test strip NEGA TIVE NEGATIVE Urine urobilinogen measurement by automated test strip (mass/volume) 0.2 mg/dL < = 1.0 Urine leukocyte esterase detection by dipstick NEG ATIVE NEGATIVE Automated urine sediment erythrocyte cou nt by microscopy (number/high power field) NONE NRG Automated urine sediment leukocyte count by microscopy (number/high power field) NONE NRG Bacteria detection in urine sediment by light microsco py TRACE NRG Crystals detection in urine sediment by light microsco py NONE NRG Casts detection in urine sediment by light microscopy NONE NRG Mucus detection in urine sediment by light microscopy NEGATIVE NRG Complete urinalysis with reflex to culture CULTURE PENDING NRG Microscopic examination by wet preparati on - 11/02/19 08:00 WET PREP RESULTS FEW CLUE CELLS OBSERVED NRG Bacterial urine culture - 11/02/19 08:00 Bacterial urine culture NG NRG Complete blood count (CBC) with automate d white blood cell (WBC) differential - 11/02/19 08:42 Blood leukocytes automated count (number/volume) 12.8 10*3/uL 4.3-11.0 Blood erythrocytes automated count (number/volume) 3.32 10*6/uL 4.35-5.85 Venous blood hemoglobin measurement (mass/volume) 10.1 g/dL 11.5-16.0 Blood hematocrit (volume fraction) 28 % 35-52 Automated erythrocyte mean corpuscular volume 85 [ foz_us] 80-99 Automated erythrocyte mean corpuscular h emoglobin (mass per erythrocyte) 30 pg 25-34 Automated erythrocyte mean corpuscular h emoglobin concentration measurement (mass/volume) 36 g/dL 32-36 Automated erythrocyte distribution width ratio 13. 2 % 10.0- 14.5 Automated blood platelet count (count/volume) 180 10*3/uL 130-400 Automated blood platelet mean volume measurement 10.7 [foz_us] 7.4-10.4 Automated blood neutrophils/100 leukocytes 69 % 42-75 Automated blood lymphocytes/100 leukocytes 17 % 12-44 Blood monocytes/100 leukocytes 11 % 0-12 Automated blood eosinophils/100 leukocytes 3 % 0-10 Automated blood basophils/100 leukocytes 0 % 0-10 Blood neutrophils automated count (number/volume) 8.9 10*3 1.8-7.8 Blood lymphocytes automated count (number/volume) 2.1 10*3 1.0-4.0 Blood monocytes automated count (number/volume) 1. 4 10*3 0.0-1.0 Automated eosinophil count 0.4 10*3/uL 0 .0-0.3 Automated blood basophil count (count/volume) 0.0 10*3/uL 0.0-0.1 Comprehensive metabolic panel - 11/02/19 08:42 Serum or plasma sodium measurement (moles/volume) 138 mmol/L 135-145 Serum or plasma potassium measurement (moles/volume) 3.3 mmol/L 3.6-5.0 Serum or plasma chloride measurement (moles/volume) 108 mmol/L 98-107 Carbon dioxide 18 mmol/L 21-32 Serum or plasma anion gap determination (moles/volume) 12 mmol/L 5-14 Serum or plasma urea nitrogen measurement (mass/volume ) 5 mg/dL 7-18 Serum or plasma creatinine measurement (mass/volume) 0.57 mg/dL 0.60-1.30 Serum or plasma urea nitrogen/creatinine mass ratio 9 NRG Serum or plasma creatinine measurement w ith calculation of estimated glomerular filtration rate > NRG Serum or plasma glucose measurement (mass/volume) 102 mg/dL 70-105 Serum or plasma calcium measurement (mass/volume) 9.0 mg/dL 8.5-10.1 Serum or plasma total bilirubin measurement (mass/volu me) 0.2 mg/dL 0.1-1.0 Serum or plasma alkaline phosphatase ortiz surement (enzymatic activity/volume) 67 U/L 40-136 Serum or plasma aspartate aminotransfera se measurement (enzymatic activity/volume) 15 U/L 5-34 Serum or plasma alanine aminotransferase measurement (enzymatic activity/volume) 20 U/L 0-55 Serum or plasma protein measurement (mass/volume) 6.1 g/dL 6.4-8.2 Serum or plasma albumin measurement (mass/volume) 3.3 g/dL 3.2-4.5 CALCIUM CORRECTED 9.6 mg/dL 8.5-10.1 Urine protein/creatinine mass ratio - 10:31 Urine protein measurement (mass/volume) 84 mg/dL 6-12 Urine creatinine measurement (mass/volume) 164 mg/ dL 30-125 Urine protein/creatinine mass ratio 0.51 NRG Urine protein/creatinine mass ratio - 09:10 Urine protein measurement (mass/volume) 43 mg/dL 6-12 Urine creatinine measurement (mass/volume) 231 mg/ dL 30-125 Urine protein/creatinine mass ratio 0.19 NRG Complete urinalysis with reflex to cultu re - 12/25/19 09:10 Urine color determination REJI NRG Urine clarity determination CLEAR NR G Urine pH measurement by test strip 6.5 5-9 Specific gravity of urine by test strip 1.025 1.016-1.022 Urine protein assay by test strip, semi-quantitative TRACE NEGATIVE Urine glucose detection by automated test strip NE GATIVE NEGATIVE Erythrocytes detection in urine sediment by light micr oscopy 1+ NEGATIVE Urine ketones detection by automated test strip 1+ NEGATIVE Urine nitrite detection by test strip NEGATIVE NEGATIVE Urine total bilirubin detection by test strip 1+ NEGATIVE Urine urobilinogen measurement by automated test strip (mass/volume) 1.0 mg/dL < = 1.0 Urine leukocyte esterase detection by dipstick NEG ATIVE NEGATIVE Automated urine sediment erythrocyte cou nt by microscopy (number/high power field) [HPF] NRG Automated urine sediment leukocyte count by microscopy (number/high power field) NONE NRG Bacteria detection in urine sediment by light microsco py TRACE NRG Squamous epithelial cells detection in u rine sediment by light microscopy 2-5 NRG Crystals detection in urine sediment by light microsco py PRESENT NRG Casts detection in urine sediment by light microscopy NONE NRG Mucus detection in urine sediment by light microscopy NEGATIVE NRG Complete urinalysis with reflex to culture CULTURE PENDING NRG Amorphous sediment detection in urine sediment by ligh t microscopy RARE SUE URATES NRG Uric acid crystals detection in urine sediment by ligh t microscopy RARE NRG Bacterial urine culture - 12/25/19 09:10 Bacterial urine culture NG NRG Complete blood count (CBC) with automate d white blood cell (WBC) differential - 12/25/19 09:25 Blood leukocytes automated count (number/volume) 9.3 10*3/uL 4.3-11.0 Blood erythrocytes automated count (number/volume) 3.04 10*6/uL 4.35-5.85 Venous blood hemoglobin measurement (mass/volume) 8.3 g/dL 11.5-16.0 Blood hematocrit (volume fraction) 25 % 35-52 Automated erythrocyte mean corpuscular volume 82 [ foz_us] 80-99 Automated erythrocyte mean corpuscular h emoglobin (mass per erythrocyte) 27 pg 25-34 Automated erythrocyte mean corpuscular h emoglobin concentration measurement (mass/volume) 33 g/dL 32-36 Automated erythrocyte distribution width ratio 13. 4 % 10.0- 14.5 Automated blood platelet count (count/volume) 161 10*3/uL 130-400 Automated blood platelet mean volume measurement 10.7 [foz_us] 7.4-10.4 Automated blood neutrophils/100 leukocytes 77 % 42-75 Automated blood lymphocytes/100 leukocytes 12 % 12-44 Blood monocytes/100 leukocytes 11 % 0-12 Automated blood eosinophils/100 leukocytes 0 % 0-10 Automated blood basophils/100 leukocytes 0 % 0-10 Blood neutrophils automated count (number/volume) 7.2 10*3 1.8-7.8 Blood lymphocytes automated count (number/volume) 1.1 10*3 1.0-4.0 Blood monocytes automated count (number/volume) 1. 0 10*3 0.0-1.0 Automated eosinophil count 0.0 10*3/uL 0 .0-0.3 Automated blood basophil count (count/volume) 0.0 10*3/uL 0.0-0.1 Comprehensive metabolic panel - 12/25/19 09:25 Serum or plasma sodium measurement (moles/volume) 138 mmol/L 135-145 Serum or plasma potassium measurement (moles/volume) 3.0 mmol/L 3.6-5.0 Serum or plasma chloride measurement (moles/volume) 109 mmol/L 98-107 Carbon dioxide 20 mmol/L 21-32 Serum or plasma anion gap determination (moles/volume) 9 mmol/L 5-14 Serum or plasma urea nitrogen measurement (mass/volume ) 5 mg/dL 7-18 Serum or plasma creatinine measurement (mass/volume) 0.67 mg/dL 0.60-1.30 Serum or plasma urea nitrogen/creatinine mass ratio 7 NRG Serum or plasma creatinine measurement w ith calculation of estimated glomerular filtration rate > NRG Serum or plasma glucose measurement (mass/volume) 109 mg/dL 70-105 Serum or plasma calcium measurement (mass/volume) 8.6 mg/dL 8.5-10.1 Serum or plasma total bilirubin measurement (mass/volu me) 0.4 mg/dL 0.1-1.0 Serum or plasma alkaline phosphatase ortiz surement (enzymatic activity/volume) 115 U/L 40-136 Serum or plasma aspartate aminotransfera se measurement (enzymatic activity/volume) 29 U/L 5-34 Serum or plasma alanine aminotransferase measurement (enzymatic activity/volume) 31 U/L 0-55 Serum or plasma protein measurement (mass/volume) 5.8 g/dL 6.4-8.2 Serum or plasma albumin measurement (mass/volume) 3.0 g/dL 3.2-4.5 CALCIUM CORRECTED 9.4 mg/dL 8.5-10.1 Serum or plasma uric acid measurement (m ass/volume) - 12/25/19 09:25 Serum or plasma uric acid measurement (mass/volume) 3.4 mg/dL 2.6-7.2 Serum ragweed IgE antibody assay - 12/25 09:25 Serum ragweed IgE antibody assay 178 U/L 125-220 Comprehensive metabolic panel - 12/26/19 15:32 Serum or plasma sodium measurement (moles/volume) 141 mmol/L 135-145 Serum or plasma potassium measurement (moles/volume) 2.8 mmol/L 3.6-5.0 Serum or plasma chloride measurement (moles/volume) 111 mmol/L 98-107 Carbon dioxide 19 mmol/L 21-32 Serum or plasma anion gap determination (moles/volume) 11 mmol/L 5-14 Serum or plasma urea nitrogen measurement (mass/volume ) 4 mg/dL 7-18 Serum or plasma creatinine measurement (mass/volume) 0.69 mg/dL 0.60-1.30 Serum or plasma urea nitrogen/creatinine mass ratio 6 NRG Serum or plasma creatinine measurement w ith calculation of estimated glomerular filtration rate > NRG Serum or plasma glucose measurement (mass/volume) 118 mg/dL 70-105 Serum or plasma calcium measurement (mass/volume) 7.9 mg/dL 8.5-10.1 Serum or plasma total bilirubin measurement (mass/volu me) 0.3 mg/dL 0.1-1.0 Serum or plasma alkaline phosphatase ortiz surement (enzymatic activity/volume) 117 U/L 40-136 Serum or plasma aspartate aminotransfera se measurement (enzymatic activity/volume) 31 U/L 5-34 Serum or plasma alanine aminotransferase measurement (enzymatic activity/volume) 27 U/L 0-55 Serum or plasma protein measurement (mass/volume) 5.2 g/dL 6.4-8.2 Serum or plasma albumin measurement (mass/volume) 2.6 g/dL 3.2-4.5 CALCIUM CORRECTED 9.0 mg/dL 8.5-10.1 Urine protein/creatinine mass ratio - 14:00 Urine protein measurement (mass/volume) 26 mg/dL 6-12 Urine creatinine measurement (mass/volume) 140 mg/ dL 30-125 Urine protein/creatinine mass ratio 0.19 NRG Complete urinalysis with reflex to cultu re - 01/25/20 02:50 Urine color determination YELLOW NRG Urine clarity determination SL CLOUDY N RG Urine pH measurement by test strip 6.5 5-9 Specific gravity of urine by test strip 1.020 1.016-1.022 Urine protein assay by test strip, semi-quantitative NEGATIVE NEGATIVE Urine glucose detection by automated test strip NE GATIVE NEGATIVE Erythrocytes detection in urine sediment by light micr oscopy NEGATIVE NEGATIVE Urine ketones detection by automated test strip TR FLORECITA NEGATIVE Urine nitrite detection by test strip NEGATIVE NEGATIVE Urine total bilirubin detection by test strip NEGA TIVE NEGATIVE Urine urobilinogen measurement by automated test strip (mass/volume) 0.2 mg/dL < = 1.0 Urine leukocyte esterase detection by dipstick 2+ NEGATIVE Automated urine sediment erythrocyte cou nt by microscopy (number/high power field) [HPF] NRG Automated urine sediment leukocyte count by microscopy (number/high power field) [HPF] NRG Bacteria detection in urine sediment by light microsco py MODERATE NRG Squamous epithelial cells detection in u rine sediment by light microscopy 10-25 NRG Crystals detection in urine sediment by light microsco py PRESENT NRG Casts detection in urine sediment by light microscopy NONE NRG Mucus detection in urine sediment by light microscopy SMALL NRG Complete urinalysis with reflex to culture CULTURE PENDING NRG Amorphous sediment detection in urine sediment by ligh t microscopy FEW SUE URATES NRG Bacterial urine culture - 01/25/20 02:50 Bacterial urine culture NG NRG Complete blood count (CBC) with automate d white blood cell (WBC) differential - 01/25/20 04:00 Blood leukocytes automated count (number/volume) 9.4 10*3/uL 4.3-11.0 Blood erythrocytes automated count (number/volume) 3.59 10*6/uL 4.35-5.85 Venous blood hemoglobin measurement (mass/volume) 8.8 g/dL 11.5-16.0 Blood hematocrit (volume fraction) 28 % 35-52 Automated erythrocyte mean corpuscular volume 77 [ foz_us] 80-99 Automated erythrocyte mean corpuscular h emoglobin (mass per erythrocyte) 25 pg 25-34 Automated erythrocyte mean corpuscular h emoglobin concentration measurement (mass/volume) 32 g/dL 32-36 Automated erythrocyte distribution width ratio 14. 0 % 10.0- 14.5 Automated blood platelet count (count/volume) 173 10*3/uL 130-400 Automated blood platelet mean volume measurement 11.4 [foz_us] 7.4-10.4 Automated blood neutrophils/100 leukocytes 69 % 42-75 Automated blood lymphocytes/100 leukocytes 20 % 12-44 Blood monocytes/100 leukocytes 10 % 0-12 Automated blood eosinophils/100 leukocytes 0 % 0-10 Automated blood basophils/100 leukocytes 0 % 0-10 Blood neutrophils automated count (number/volume) 6.5 10*3 1.8-7.8 Blood lymphocytes automated count (number/volume) 1.9 10*3 1.0-4.0 Blood monocytes automated count (number/volume) 1. 0 10*3 0.0-1.0 Automated eosinophil count 0.0 10*3/uL 0 .0-0.3 Automated blood basophil count (count/volume) 0.0 10*3/uL 0.0-0.1 Complete urinalysis with reflex to cultu re - 01/25/20 04:00 Urine color determination REJI NRG Urine clarity determination CLEAR NR G Urine pH measurement by test strip 6.0 5-9 Specific gravity of urine by test strip 1.025 1.016-1.022 Urine protein assay by test strip, semi-quantitative TRACE NEGATIVE Urine glucose detection by automated test strip NE GATIVE NEGATIVE Erythrocytes detection in urine sediment by light micr oscopy NEGATIVE NEGATIVE Urine ketones detection by automated test strip NE GATIVE NEGATIVE Urine nitrite detection by test strip NEGATIVE NEGATIVE Urine total bilirubin detection by test strip NEGA TIVE NEGATIVE Urine urobilinogen measurement by automated test strip (mass/volume) 0.2 mg/dL < = 1.0 Urine leukocyte esterase detection by dipstick NEG ATIVE NEGATIVE Automated urine sediment erythrocyte cou nt by microscopy (number/high power field) [HPF] NRG Automated urine sediment leukocyte count by microscopy (number/high power field) [HPF] NRG Bacteria detection in urine sediment by light microsco py TRACE NRG Squamous epithelial cells detection in u rine sediment by light microscopy 2-5 NRG Crystals detection in urine sediment by light microsco py NONE NRG Casts detection in urine sediment by light microscopy NONE NRG Mucus detection in urine sediment by light microscopy MODERATE NRG Complete urinalysis with reflex to culture NO NRG Serum or plasma glucose measurement (mas s/volume) - 01/31/20 07:35 Serum or plasma glucose measurement (mass/volume) 121 mg/dL 70-105 Complete blood count (CBC) with automate d white blood cell (WBC) differential - 01/31/20 07:35 Blood leukocytes automated count (number/volume) 7.5 10*3/uL 4.3-11.0 Blood erythrocytes automated count (number/volume) 3.66 10*6/uL 4.35-5.85 Venous blood hemoglobin measurement (mass/volume) 8.8 g/dL 11.5-16.0 Blood hematocrit (volume fraction) 28 % 35-52 Automated erythrocyte mean corpuscular volume 75 [ foz_us] 80-99 Automated erythrocyte mean corpuscular h emoglobin (mass per erythrocyte) 24 pg 25-34 Automated erythrocyte mean corpuscular h emoglobin concentration measurement (mass/volume) 32 g/dL 32-36 Automated erythrocyte distribution width ratio 14. 6 % 10.0- 14.5 Automated blood platelet count (count/volume) 178 10*3/uL 130-400 Automated blood platelet mean volume measurement 10.8 [foz_us] 7.4-10.4 Automated blood neutrophils/100 leukocytes 69 % 42-75 Automated blood lymphocytes/100 leukocytes 19 % 12-44 Blood monocytes/100 leukocytes 11 % 0-12 Automated blood eosinophils/100 leukocytes 1 % 0-10 Automated blood basophils/100 leukocytes 0 % 0-10 Blood neutrophils automated count (number/volume) 5.2 10*3 1.8-7.8 Blood lymphocytes automated count (number/volume) 1.4 10*3 1.0-4.0 Blood monocytes automated count (number/volume) 0. 8 10*3 0.0-1.0 Automated eosinophil count 0.1 10*3/uL 0 .0-0.3 Automated blood basophil count (count/volume) 0.0 10*3/uL 0.0-0.1 Capillary blood glucose measurement by g lucometer (mass/volume) - 01/31/20 12:32 Capillary blood glucose measurement by glucometer (mas s/volume) 113 mg/dL 70-110 Encounters ACCT No. Visit Date/Time Discharge Status Pt. Type Provider Facility Loc./Unit Complaint [id number] 12/10/2019 16:50:00 12/10/2019 23:59: 59 [facility] [id number] 06/13/2019 14:15:00 Document Registration [id number] 05/13/2019 14:45:00 Document Registration [id number] 05/06/2019 15:00:00 Document Registration [id number] 05/02/2019 14:40:00 Document Registration [id number] 04/30/2019 15:15:00 Document Registration [id number] 04/29/2019 15:30:00 Document Registration [id number] 03/22/2019 10:30:00 Document Registration [id number] 02/12/2019 13:30:00 Document Registration [id number] 01/24/2019 09:15:00 Document Registration [id number] 01/22/2019 14:00:00 Document Registration [id number] 01/22/2019 09:30:00 Document Registration [id number] 01/17/2019 09:45:00 Document Registration [id number] 01/31/2020 07:03:00 14:30:00 DIS Inpatient HELIO PEACE MD Via [facility] INDUCTION [id number] 01/25/2020 02:40:00 05:35:00 DIS Outpatient HELIO PEACE MD [facility] UID LEAKAGE [id number] 01/06/2020 14:52:00 23:59:59 CLS Outpatient HELIO PEACE MD Via [facility] LABT [id number] 12/25/2019 08:37:00 10:48:00 DIS Outpatient HELIO PEACE MD Via [facility] LD RIGHT FLANK TOSHIA N [id number] 12/17/2019 17:45:00 07:53:00 DIS Outpatient HELIO PEACE MD Via [facility] EARLY PYELO [id number] 12/17/2019 11:11:00 23:59:59 CLS Outpatient HELIO PEACE MD Via [facility] LABNPT [id number] 11/21/2019 01:50:00 02:35:00 DIS Emergency TRACY ZARAGOZA MD Via [facility] ER FS BACK PAIN, LEG PAIN [id number] 11/02/2019 07:40:00 12:45:00 DIS Outpatient HELIO PEACE MD Via [facility] CERVICAL PAIN [id number] 11/01/2019 20:13:00 20:41:00 DIS Outpatient KOBI DUARTE, HELIO Arrieta Via [facility] WSo CERVICAL PAIN [id number] 10/03/2019 14:23:00 16:40:00 DIS Emergency CALVIN DUARTE, RHODA New Via [facility] ER FS HEADACHE; STEVE E YE PAIN; SYNCOPE [id number] 07/15/2019 07:02:00 09:25:00 DIS Emergency CLYDE DUARTE, HUY Mckeon Via [facility] ER FS LWR BACK AND LLQ PAIN [id number] 05/06/2019 17:47:00 20:07:00 DIS Emergency SAMY FISHER DO Via [facility] ER FS VAGINAL BLEEDING [id number] 01/21/2019 22:59:00 00:11:00 DIS Emergency CHRISTIN GAYLE DO Via [facility] ER FS 5 WKS , ELISA G
== END 2020-02-02 14:30 | disposition home or self-care (01) | DRG 806 ==
LOC: LDRP 07:03
PROVIDERS: ADMIT Obstetrics & Gynecology; ATTEND Obstetrics & Gynecology
PROC: 10E0XZZ Delivery of Products of Conception, External Approach (ICD-10-PCS; principal; 2020-01-31)
PROC: 3E033VJ Introduction of Other Hormone into Peripheral Vein, Percutaneous Approach (ICD-10-PCS; 2020-01-31)
DX: O24.425 Gestational diabetes mellitus in childbirth, controlled by oral hypoglycemic drugs (principal); Z37.0 Single live birth; N20.1 Calculus of ureter; O99.89 Other specified diseases and conditions complicating pregnancy, childbirth and the puerperium; O66.0 Obstructed labor due to shoulder dystocia; O36.63X0 Maternal care for excessive fetal growth, third trimester, not applicable or unspecified; Z3A.37 37 weeks gestation of pregnancy; Z79.84 Long term (current) use of oral hypoglycemic drugs
CPT/HCPCS: 36415; 82947; 82962; 85025

== ENCOUNTER → 2020-05-05 | Outpatient (CLI) | payer MEDICAID ==
[~2020-05-05] MED LIST changes: +DCS100C PO; +IBUP-1780 PO; +OXYC1TAB87 PO
== END ==
LOC: LAB FS 14:07
PROVIDERS: ATTEND Family Medicine
DX: N91.2 Amenorrhea, unspecified (principal)
CPT/HCPCS: 36415; 84702

== ENCOUNTER 2020-09-09 03:10 | Emergency (ER) | payer MEDICAID ==
[2020-09-09] MEDS ORDERED: ONDANSETRON 4 MG (ZOFRAN) ORAL DISSOLVE TAB PO STA (03:22)
--- NOTE | 2020-09-09 03:43 | ED General ---
General Chief Complaint: Back Problems Stated Complaint: POSS UTI Nursing Triage Note: Pt complaining of bilateral lower back pain Nursing Sepsis Screen: No Definite Risk History of Present Illness Date Seen by Provider: Sep 09, 2020 Time Seen by Provider: 03:38 Initial Comments Patient presenting to the emergency department for evaluation of bilateral flank pain that started approximately midnight tonight and has persisted. She describes it as a dull ache bilaterally that makes her feel nauseated. She says it does not radiate and does not get worse with movements palpation or anything she can think of. She denies any other areas of pain such as abdominal pain dysuria hematuria vaginal bleeding vaginal discharge and she also denies any fevers chills cough or shortness of breath. She says she gets urinary tract infections frequently and that she does not typically have dysuria rather she has back pain. She is in no obvious distress with normal vital signs. Allergies and Home Medications Allergies Coded Allergies: azithromycin (Verified Allergy, Unknown, HIVES, 01/21/19) Home Medications Docusate Sodium 100 Mg Capsule, 100 MG PO BID Prescribed by: HELIO COSTA on 02/01/20 1036 Ibuprofen 800 Mg Tablet, 800 MG PO Q6H Prescribed by: HELIO COSTA on 02/01/20 1036 Oxycodone HCl/Acetaminophen 1 Each Tablet, 1-2 TAB PO Q4H PRN for PAIN-MODERATE (5-7) Prescribed by: HELIO COSTA on 02/01/20 1036 [id number]/Iron Fumarate/FA/Dss 1 Each Tablet, 1 EACH PO DAILY, (Reported) Patient Home Medication List Home Medication List Reviewed: Yes Review of Systems Review of Systems Constitutional: no symptoms reported EENTM: no symptoms reported Respiratory: no symptoms reported Cardiovascular: no symptoms reported Gastrointestinal: nausea Genitourinary: no symptoms reported Musculoskeletal: back pain Psychiatric/Neurological: No Symptoms Reported All Other Systems Reviewed Negative Unless Noted: Yes Past Unzwfkv-Dcloja-Jbnnhj Hx Patient Social History Alcohol Use: Denies Use Recreational Drug Use: No 2nd Hand Smoke Exposure: No Recent Foreign Travel: No Contact w/Someone Who Travel: No Recent Infectious Disease Expo: No Recent Hopitalizations: Yes (kidney stones ) Physical Abuse: No Sexual Abuse: No Immunizations Up To Date Tetanus Booster (TDap): Unknown Date of Influenza Vaccine: Sep 24, 2020 Seasonal Allergies Seasonal Allergies: No Past Medical History Surgeries: Yes Gallbladder Respiratory: No Cardiac: No Neurological: No Sexually Transmitted Disease: No HIV/AIDS: No Genitourinary: No Gastrointestinal: Yes Gastroesophageal Reflux Musculoskeletal: No Endocrine: Yes HEENT: No Cancer: No Psychosocial: Yes Anxiety Integumentary: No Blood Disorders: Yes (anemia) Physical Exam Vital Signs Vital Signs - First Documented 09/09/20 03:13 Temp 36.6 Pulse 83 Resp 16 B/P (MAP) 153/86 (108) Pulse Ox 99 O2 Delivery Room Air Capillary Refill : Less Than 3 Seconds Height, Weight, BMI Height: 5'4.00" Weight: 185lbs. 0.0oz. 83.962154lp; 32.11 BMI Method:Stated General Appearance: No Apparent Distress, WD/WN HEENT: PERRL/EOMI Neck: Supple Respiratory: No Respiratory Distress Cardiovascular: Regular Rate, Rhythm Gastrointestinal: Non Tender, Soft Back: Normal Inspection, No CVA Tenderness, No Vertebral Tenderness Extremity: Normal Capillary Refill Neurologic/Psychiatric: Alert, Oriented x3 Progress/Results/Core Measures Suspected Sepsis Recent Fever Within 48 Hours: No Infection Criteria Present: None New/Unexplained Altered Menta: No Sepsis Screen: No Definite Risk SIRS Temperature: Pulse: 83 Respiratory Rate: 16 Blood Pressure 153 /86 Mean: 108 Results/Orders Lab Results Laboratory Tests Test 09/09/20 03:15 Range/Units Urine Color YELLOW Urine Clarity SLT CLOUDY Urine pH 8.0 5-9 Urine Specific [place] 1.020 1.016-1.022 Urine Protein NEGATIVE NEGATIVE Urine Glucose (UA) NEGATIVE NEGATIVE Urine Ketones NEGATIVE NEGATIVE Urine Nitrite NEGATIVE NEGATIVE Urine Bilirubin NEGATIVE NEGATIVE Urine Urobilinogen 0.2 < = 1.0 MG/DL Urine Leukocyte Esterase NEGATIVE NEGATIVE Urine RBC (Auto) NEGATIVE NEGATIVE Urine RBC NONE /HPF Urine WBC RARE /HPF Urine Squamous Epithelial Cells 5-10 /HPF Urine Crystals NONE /LPF Urine Amorphous Sediment FEW SUE PHOSPHATE H /LPF Urine Bacteria FEW H /HPF Urine Casts NONE /LPF Urine Mucus NEGATIVE /LPF Urine Culture Indicated NO Urine Test NEGATIVE NEGATIVE My Orders Orders - LEODAN MCCANN DO Ua Culture If Indicated (09/09/20 03:22) Hcg,Qualitative Urine (09/09/20 03:22) Ondansetron Oral Dissolve Tab (Zofran (09/09/20 03:22) Vital Signs/I&O 09/09/20 03:13 Temp 36.6 Pulse 83 Resp 16 B/P (MAP) 153/86 (108) Pulse Ox 99 O2 Delivery Room Air Capillary Refill : Less Than 3 Seconds Blood Pressure Mean: 108 Progress Note : Progress Note Patient with nonspecific back pain. She says the pain is not that bad and does not want anything for pain but she was willing to take Zofran for nausea. Will check urinalysis and then reassess. Urinalysis is negative and nausea has improved and she is able to tolerate fluids by mouth with no difficulty. I suspect this may be a GI issue such as a gastritis given the nausea and back pain. She has a benign physical exam with no abdominal tenderness and normal vital signs and she feels better so I will discharge her in stable condition and told her to take Tums and Maalox for pain drink plenty of fluids follow primary care provider later today or tomorrow and come back to the emergency Department sooner with worsening pain fevers vomiting or other general concerns. Patient aware and agreeable with plan and verbalized understanding of the above instructions. Departure Impression Primary Impression: Back pain Qualified Codes: M54.6 - Pain in thoracic spine Additional Impression: Nausea alone Disposition: 01 HOME, SELF-CARE Condition: Stable Departure-Patient Inst. Referrals: ENOC MERRILL MD (PCP/Family) Primary Care Physician Patient Instructions: Upper Back Pain (DC) Scripts Ondansetron (Ondansetron Odt) 4 Mg Tab.rapdis 4 MG PO Q6H PRN for NAUSEA/VOMITING-1ST LINE, #14 TAB Prov: LEODAN MCCANN DO 09/09/20 LEODAN MCCANN DO Sep 09, 2020 03:43
[2020-09-09 04:00] LABS: BILIRUBIN,URINE NEGATIVE (NEGATIVE); CLARITY,URINE SLT CLOUDY; COLOR,URINE YELLOW; GLUCOSE, URINE (UA) NEGATIVE (NEGATIVE); KETONES,URINE NEGATIVE (NEGATIVE); NITRITE,URINE NEGATIVE (NEGATIVE); PROTEIN,URINE NEGATIVE (NEGATIVE)
[2020-09-09 04:01] LABS: AMORPHOUS SEDIMENT,UR FEW AMOR PHOSPHATE /LPF; BACTERIA,URINE FEW /HPF; LEUKOCYTE ESTERASE ,URINE NEGATIVE (NEGATIVE); WBC,URINE RARE /HPF
[2020-09-09] MEDS ORDERED: ONDA4TAB11 PO (04:10)
[2020-09-09 04:11] VITALS: BP 153/86
== END 2020-09-09 04:13 | disposition home or self-care (01) ==
LOC: EDUNIT# 03:10 → ER FS 03:12
DX: M54.9 Dorsalgia, unspecified (principal); R11.0 Nausea; Z88.1 Allergy status to other antibiotic agents
CPT/HCPCS: 81000; 84703; 99283

== ENCOUNTER → 2020-12-28 | Outpatient (CLI) | payer MEDICAID | LOC: LAB FS 12:55 | PROVIDERS: ATTEND Family Medicine | DX: N92.5 Other specified irregular menstruation (principal) | CPT/HCPCS: 36415; 84702 ==

== ENCOUNTER → 2021-02-16 | Outpatient (CLI) | payer MEDICAID ==
[2021-02-16 15:03] LABS: BASOPHILS % (AUTO) 1 % (0-10); EOSINOPHILS % (AUTO) 3 % (0-10); HEMATOCRIT 41 % (35-52); HEMOGLOBIN 13.9 G/DL (11.5-16.0); LYMPHOCYTES % (AUTO) 31 % (12-44); MEAN CORPUSCULAR HEMOGLOBIN 30 PG (25-34); MEAN CORPUSCULAR HGB CONC 34 G/DL (32-36); MEAN CORPUSCULAR VOLUME 87 FL (80-99); MEAN PLATELET VOLUME 10.3 FL (7.4-10.4); MONOCYTES # (AUTO) 0.7 X 10^3 (0.0-1.0); MONOCYTES % (AUTO) 7 % (0-12); NEUTROPHILS # (AUTO) 5.5 X 10^3 (1.8-7.8); NEUTROPHILS % (AUTO) 58 % (42-75); PLATELET COUNT 238 10^3/uL (130-400); WHITE BLOOD COUNT 9.5 10^3/uL (4.3-11.0)
[2021-02-16 15:04] LABS: BASOPHILS # (AUTO) 0.1 10^3/uL (0.0-0.1); EOSINOPHILS # (AUTO) 0.3 10^3/uL (0.0-0.3)
[2021-02-16 15:08] LABS: CLARITY,URINE SLT CLOUDY; COLOR,URINE YELLOW
[2021-02-16 15:09] LABS: BILIRUBIN,URINE 1+ (NEGATIVE); GLUCOSE, URINE (UA) NEGATIVE (NEGATIVE); KETONES,URINE TRACE (NEGATIVE); LEUKOCYTE ESTERASE ,URINE NEGATIVE (NEGATIVE); NITRITE,URINE NEGATIVE (NEGATIVE); PROTEIN,URINE NEGATIVE (NEGATIVE)
[2021-02-16 15:10] LABS: BACTERIA,URINE FEW /HPF; WBC,URINE 0-2 /HPF
[2021-02-16 15:17] LABS: ALKALINE PHOSPHATASE 86 U/L (40-136); BILIRUBIN,TOTAL 0.3 MG/DL (0.1-1.0); BUN/CREATININE RATIO 13; CALCIUM 9.5 MG/DL (8.5-10.1); CARBON DIOXIDE 25 MMOL/L (21-32); CHLORIDE 104 MMOL/L (98-107); CREATININE SERUM 0.56 MG/DL (0.60-1.30); GFR ESTIMATED > 60; GLUCOSE 88 MG/DL (70-105); POTASSIUM 4.6 MMOL/L (3.6-5.0); SODIUM 138 MMOL/L (135-145)
[2021-02-16 15:18] LABS: ALANINE AMINOTRANSFERASE 17 U/L (0-55); ALBUMIN 4.6 GM/DL (3.2-4.5); LIPASE 31 U/L (8-78); TOTAL PROTEIN 7.2 GM/DL (6.4-8.2)
== END ==
LOC: LAB FS 14:20
PROVIDERS: ATTEND Family Medicine
DX: R10.9 Unspecified abdominal pain (principal)
CPT/HCPCS: 36415; 80053; 81000; 83690; 85025

== ENCOUNTER → 2021-02-19 | Outpatient (CLI) | payer MEDICAID ==
--- NOTE | 2021-02-19 13:16 | Diagnostic Imaging Report ---
INDICATION: Abdominal pain. COMPARISON: CT dated 12/26/2019 FINDINGS: 2 supine radiograph views of the abdomen were obtained and demonstrate nondistended loops of small bowel. There is no large collection of free peritoneal air. Moderate air and stool are seen scattered throughout the colon. No unexpected extraosseous calcifications or radiopaque foreign bodies are seen. Bony structures show no gross acute abnormalities. IMPRESSION: 1. Nonobstructed small bowel gas pattern. 2. Moderate colonic air and stool. Please correlate for constipation Dictated by: Dictated on workstation # [id number]
--- NOTE | 2021-02-19 16:05 | Diagnostic Imaging Report ---
PROCEDURE: US Non-ob pelvis comp/trans. TECHNIQUE: Multiple realtime grayscale images were obtained of the pelvis in various projections endovaginally. Transabdominal imaging was also performed. INDICATION: Pelvic and perineal pain. No menses for two years. FINDINGS: Uterus measures 7.6 x 3.9 x 5.1 cm. Endometrial stripe measures 1 cm. No endometrial or myometrial masses are demonstrated. The right ovary measures 3.2 x 2.4 x 4.2 cm. The left ovary measures 3.6 x 2.1 x 3 cm. There are no cystic lesions or masses within the ovaries. There are multiple follicular cysts scattered through both ovaries, all measuring 1 cm and less. There is a trace of free fluid in the pelvis. IMPRESSION: Normal pelvic ultrasound. Dictated by: Dictated on workstation # [id number]
== END ==
LOC: RAD 12:30
PROVIDERS: ATTEND Family Medicine
DX: R10.2 Pelvic and perineal pain (principal); R14.0 Abdominal distension (gaseous)
CPT/HCPCS: 74018; 76830; 76856

== ENCOUNTER → 2021-03-22 | Outpatient (CLI) | payer MEDICAID | LOC: LAB FS 12:01 | PROVIDERS: ATTEND Family Medicine | DX: N92.5 Other specified irregular menstruation (principal) | CPT/HCPCS: 36415; 84702 ==

== ENCOUNTER 2021-03-31 19:15 | Emergency (ER) | payer MEDICAID ==
[~2021-03-31] VITALS: Ht 165.1 cm; Wt 68.2 kg
[2021-03-31 19:28] VITALS: BP 132/65
[2021-03-31 19:37] LABS: CLARITY,URINE CLEAR; COLOR,URINE YELLOW; GLUCOSE, URINE (UA) NEGATIVE (NEGATIVE); PROTEIN,URINE NEGATIVE (NEGATIVE)
[2021-03-31 19:38] LABS: BACTERIA,URINE NEGATIVE /HPF; BILIRUBIN,URINE NEGATIVE (NEGATIVE); KETONES,URINE NEGATIVE (NEGATIVE); LEUKOCYTE ESTERASE ,URINE NEGATIVE (NEGATIVE); NITRITE,URINE NEGATIVE (NEGATIVE); RBC,URINE RARE /HPF; SQUAMOUS EPITHELIAL CELL,UR 0-2 /HPF; WBC,URINE RARE /HPF
--- NOTE | 2021-03-31 19:48 | ED GU-Female ---
General Chief Complaint: Abdominal/GI Problems Stated Complaint: ABD PAIN Nursing Triage Note: Pt states she is , had levels drawn on march 22 and was told she was 6 weeks . Pt saw obgyn today and her hormone levels were down to 90,000, states she has been cramping but no bleeding, Dr vargas did perform ultrasound in the office today and told pt she was probably having a miscarriage. Pt comes to the ed wanting to know if we can do anything to prevent her from having a miscarriage. Nursing Sepsis Screen: No Definite Risk Source: patient Exam Limitations: no limitations History of Present Illness Date Seen by Provider: March 31, 2021 Time Seen by Provider: 19:17 Initial Comments 21-year-old female approximately 8 weeks gestation, see nurses note above. Had a quantitative hCG of 90,000 today with an ultrasound with no gestational sac. 1 week ago her hCG was 35,000. Told she was likely having a miscarriage and was advised to follow-up in 2 days for another hCG level. Patient does have some cramping without bleeding. Otherwise feeling okay. Allergies and Home Medications Allergies Coded Allergies: azithromycin (Verified Allergy, Unknown, HIVES, 01/21/19) Home Medications Docusate Sodium 100 Mg Capsule, 100 MG PO BID Prescribed by: HELIO COSTA on 02/01/20 1036 Ibuprofen 800 Mg Tablet, 800 MG PO Q6H Prescribed by: HELIO COSTA on 02/01/20 1036 Ondansetron 4 Mg Tab.rapdis, 4 MG PO Q6H PRN for NAUSEA/VOMITING-1ST LINE Prescribed by: LEODAN MCCANN on 09/09/20 0410 Oxycodone HCl/Acetaminophen 1 Each Tablet, 1-2 TAB PO Q4H PRN for PAIN-MODERATE (5-7) Prescribed by: HELIO COSTA on 02/01/20 1036 [id number]/Iron Fumarate/FA/Dss 1 Each Tablet, 1 EACH PO DAILY, (Reported) Patient Home Medication List Home Medication List Reviewed: Yes Review of Systems Review of Systems Constitutional: No fever, No malaise, No weakness Respiratory: no symptoms reported Cardiovascular: no symptoms reported Gastrointestinal: no symptoms reported Genitourinary: see HPI : Yes Past Jyqheic-Aytdxk-Iljyik Hx Past Med/Social Hx: Reviewed Nursing Past Med/Soc Hx Patient Social History Alcohol Use: Denies Use Smoking Status: Never a Smoker 2nd Hand Smoke Exposure: No Recent Infectious Disease Expo: No Recent Hopitalizations: Yes (kidney stones ) Immunizations Up To Date Tetanus Booster (TDap): Unknown Date of Influenza Vaccine: Sep 24, 2020 Seasonal Allergies Seasonal Allergies: No Past Medical History Surgeries: Yes Gallbladder Respiratory: No Cardiac: No Neurological: No Sexually Transmitted Disease: No HIV/AIDS: No Genitourinary: No Gastrointestinal: Yes Gastroesophageal Reflux Musculoskeletal: No Endocrine: Yes HEENT: No Cancer: No Psychosocial: Yes Anxiety Integumentary: No Blood Disorders: Yes (anemia) Physical Exam Vital Signs Vital Signs - First Documented 03/31/21 19:28 Temp 36.8 Pulse 90 Resp 16 B/P (MAP) 132/65 (87) Pulse Ox 100 O2 Delivery Room Air Capillary Refill : Less Than 3 Seconds Height, Weight, BMI Height: 5'4.00" Weight: 185lbs. 0.0oz. 83.414843ko; 25.00 BMI Method:Stated General Appearance: WD/WN, no apparent distress Neurologic/Psychiatric: alert, normal mood/affect, oriented x 3 Progress/Results/Core Measures Suspected Sepsis Recent Fever Within 48 Hours: No Infection Criteria Present: None New/Unexplained Altered Menta: No Sepsis Screen: No Definite Risk SIRS Temperature: Pulse: 90 Respiratory Rate: 16 Blood Pressure 132 /65 Mean: 87 Results/Orders Lab Results Laboratory Tests Test 03/31/21 19:27 Range/Units Urine Color YELLOW Urine Clarity CLEAR Urine pH 6.0 5-9 Urine Specific [place] >=1.030 1.016-1.022 Urine Protein NEGATIVE NEGATIVE Urine Glucose (UA) NEGATIVE NEGATIVE Urine Ketones NEGATIVE NEGATIVE Urine Nitrite NEGATIVE NEGATIVE Urine Bilirubin NEGATIVE NEGATIVE Urine Urobilinogen 0.2 < = 1.0 MG/DL Urine Leukocyte Esterase NEGATIVE NEGATIVE Urine RBC (Auto) NEGATIVE NEGATIVE Urine RBC RARE /HPF Urine WBC RARE /HPF Urine Squamous Epithelial Cells 0-2 /HPF Urine Crystals NONE /LPF Urine Bacteria NEGATIVE /HPF Urine Casts NONE /LPF Urine Mucus SMALL H /LPF Urine Culture Indicated NO My Orders Orders - TIFFANY TRINIDAD DO Urinalysis (03/31/21 19:17) Vital Signs/I&O 03/31/21 19:28 Temp 36.8 Pulse 90 Resp 16 B/P (MAP) 132/65 (87) Pulse Ox 100 O2 Delivery Room Air Capillary Refill : Less Than 3 Seconds Blood Pressure Mean: 87 Progress Note : Progress Note Discussed hCG levels and early with possibility of impending miscarriage. 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 Explained no further studies were available or necessary to determine whether or not she is going to have a miscarriage at this time. Patient in no distress and having no bleeding but no significant pain, just occasional cramping. Reassurance given, counseled and tried to educate patient on what may happen Departure Impression Primary Impression: Miscarriage, threatened, early Disposition: HOME, SELF-CARE Condition: Stable Departure-Patient Inst. Decision time for Depature: 19:47 Referrals: ENOC MERRILL MD (PCP/Family) Primary Care Physician Patient Instructions: Threatened Miscarriage (DC) Add. Discharge Instructions: Follow up with Dr Vargas in 2 days for a repeat of your blood HCG level. Call Dr Vargas's office for any other related questions. All discharge instructions reviewed with patient and/or family. Voiced understanding. TIFFANY TRINIDAD DO March 31, 2021 19:48
== END 2021-03-31 19:49 | disposition home or self-care (01) ==
LOC: EDUNIT# 19:15 → ER FS 19:16
DX: O20.0 Threatened abortion (principal); Z3A.08 8 weeks gestation of pregnancy; Z88.1 Allergy status to other antibiotic agents
CPT/HCPCS: 81000; 99282

== ENCOUNTER 2021-04-13 05:35 | Outpatient (CLI) | payer MEDICAID ==
[~2021-04-13] VITALS: Ht 162.6 cm; Wt 67.6 kg
[2021-04-13] MEDS ORDERED: OMEP20TA7 PO (11:00)
[2021-04-13] MEDS ORDERED: CEPH500C PO (11:00)
== END 2021-04-13 11:20 | disposition home or self-care (01) ==
LOC: PREOP 05:35
PROVIDERS: ATTEND Obstetrics & Gynecology
DX: Z01.818 Encounter for other preprocedural examination (principal)

== ENCOUNTER → 2021-04-14 | Outpatient (CLI) | payer MEDICAID ==
[~2021-04-14] MED LIST changes: +CEPH500C PO; +OMEP20TA7 PO
--- NOTE | 2021-04-14 14:17 | Diagnostic Imaging Report ---
PROCEDURE: US OB SINGLE FETUS <14 WKS. TECHNIQUE: Multiple real-time grayscale images were obtained over the gravid uterus in various projections. INDICATION: Blighted ovum. Uterus measures 10.6 x 7.0 x 8.0 cm. There is an intrauterine gestational sac with mean diameter measurements consistent with 9 weeks 4 days gestation. However, no pole or yolk sac is identified at this time. Features are suggestive of a blighted ovum. No kurtis-gestational sac hemorrhage is detected. Right ovary measures 2.5 x 1.5 x 2.3 cm and left ovary measures 3.7 x 1.7 x 1.6 cm. No adnexal mass or free fluid is detected. IMPRESSION: Features consistent with blighted ovum, as described. Dictated by: Dictated on workstation # [id number]
== END ==
LOC: RAD 12:41
PROVIDERS: ATTEND Obstetrics & Gynecology
DX: O02.0 Blighted ovum and nonhydatidiform mole (principal); Z3A.09 9 weeks gestation of pregnancy
CPT/HCPCS: 76801

== ENCOUNTER 2021-04-16 10:51 | Day surgery (SDC) | payer MEDICAID ==
[2021-04-16] VITALS (11 sets, daily range): BP systolic 94–143; BP diastolic 56–84
[~2021-04-16] VITALS: Ht 162.6 cm; Wt 67.6 kg
[2021-04-16] MEDS ORDERED: ceFAZolin INJECTION 1,000 MG in WATER (STERILE) FOR INJECTION 10 ML IV ONE (11:00)
[2021-04-16] MEDS ORDERED: LACTATED RINGERS 1,000 ML IV PRN (11:00)
[2021-04-16 11:40] LABS: BASOPHILS # (AUTO) 0.1 10^3/uL (0.0-0.1); BASOPHILS % (AUTO) 1 % (0-10); EOSINOPHILS # (AUTO) 0.1 10^3/uL (0.0-0.3); EOSINOPHILS % (AUTO) 1 % (0-10); HEMATOCRIT 40 % (35-52); HEMOGLOBIN 13.5 g/dL (11.5-16.0); LYMPHOCYTES # (AUTO) 2.8 10^3/uL (1.0-4.0); LYMPHOCYTES % (AUTO) 33 % (12-44); MEAN CORPUSCULAR HEMOGLOBIN 31 pg (25-34); MEAN CORPUSCULAR HGB CONC 34 g/dL (32-36); MEAN CORPUSCULAR VOLUME 90 fL (80-99); MEAN PLATELET VOLUME 10.4 fL (9.0-12.2); MONOCYTES # (AUTO) 0.6 10^3/uL (0.0-1.0); MONOCYTES % (AUTO) 7 % (0-12); NEUTROPHILS # (AUTO) 4.9 10^3/uL (1.8-7.8); NEUTROPHILS % (AUTO) 59 % (42-75); PLATELET COUNT 204 10^3/uL (130-400); WHITE BLOOD COUNT 8.3 10^3/uL (4.3-11.0)
[2021-04-16] MEDS ORDERED: ONDANSETRON 4 MG/2 ML (SDV) Z0FRAN ONE (12:10)
[2021-04-16] MEDS ORDERED: SEVOFLURANE (ULTANE) 15 ML INHAL SOLN ONE (12:10)
[2021-04-16] MEDS ORDERED: proPOfol 200 MG/20 ML (DIPRIVAN) VIAL IV ONE (12:10)
[2021-04-16] MEDS ORDERED: LIDOCAINE PF 2% 5 ML (XYLOCAINE) VIAL ONE (12:10)
[2021-04-16] MEDS ORDERED: fentaNYL INJ 100 MCG/2 ML AMP ONE (12:11)
[2021-04-16] MEDS ORDERED: MIDAZOLAM 2 MG/2 ML (VERSED) VIAL ONE (12:11)
--- NOTE | 2021-04-16 12:38 | Progress Note-Pre Operative ---
Pre-Operative Progress Note H&P Reviewed The H&P was reviewed, patient examined and no changes noted. Date Seen by Provider: April 16, 2021 Time Seen by Provider: 12:38 Date H&P Reviewed: April 16, 2021 Time H&P Reviewed: 12:38 Pre-Operative Diagnosis: Missed AB / Blighted ovum HELIO PEACE MD April 16, 2021 12:38
--- NOTE | 2021-04-16 12:39 | Progress Note-Post Operative ---
Post-Operative Progess Note Surgeon (s)/Microphone Operator (s) Surgeon HELIO PEACE MD Microphone Operator: none Pre-Operative Diagnosis Missed AB / Blighted ovum Post-Operative Diagnosis same Procedure & Operative Findings Date of Procedure 04/16/21 Procedure Performed/Findings D&C for second trimester missed AB Anesthesia Type GETA Estimated Blood Loss Estimated blood loss (mL): 200cc Specimens/Packing Specimens Removed uterine contents / POC HELIO PEACE MD April 16, 2021 12:39
--- NOTE | 2021-04-16 12:40 | Discharge Inst-Surgical ---
Discharge Inst-Surgical Depart Medication/Instructions New, Converted or Re-Newed RX: RX on Chart Consults/Follow Up Patient Instructions: as directed Orders & Referrals Follow Up Appt: Call to make follow up appt. for patient in 2 weeks. Activity: Rest for 24 hours, than as tolerated. Diet: As tolerated shower or tub bathe as desired. No driving for 24 hours, no alcoholic beverages for 24 hours, and nothing per vagina (no tampons, douching, or intercourse) for 2 weeks. Patient to return to the clinic as soon as possible for: Temperature greater than 101F, Severe Pain, Foul discharge from incision or vagina, Excessive Bleeding (more than a period). Activity Activity as Tolerated: No Diet Discharge Diet: No Restrictions HELIO PEACE MD April 16, 2021 12:40
[2021-04-16] MEDS ORDERED: HYDROmorphone 2 MG/ML VIAL (DILAUDID) IV ONE (13:15)
[2021-04-16] MEDS ORDERED: ONDANSETRON 4 MG/2 ML (SDV) Z0FRAN IVP PRN (13:15)
--- NOTE | 2021-04-16 18:01 | OPERATIVE REPORT ---
DATE OF SERVICE: 04/16/2021 PREOPERATIVE DIAGNOSIS: Second trimester missed /blighted ovum. POSTOPERATIVE DIAGNOSIS: Second trimester missed /blighted ovum. OPERATIVE PROCEDURE: D and C for second trimester missed AB. OPERATIVE DESCRIPTION: With the patient in supine position under satisfactory general anesthesia, she was carefully positioned in the dorsal lithotomy position in the Chinedu stirrups and prepped and draped in the usual fashion for vaginal surgery. The urinary bladder was drained with a straight catheter. A weighted speculum placed in the posterior fornix of vagina, cervix exposed and grasped anteriorly with a single tooth tenaculum. Uterus sounded to 14 cm with uterine sound. The cervix was then serially dilated with Leif dilators to a #20 Leif and then Hegar dilator was the final step in dilation. A #10 curved suction curette was then introduced and uterine cavity curettaged with removal of a large amount of trophoblastic and decidual appearing tissue as well as blood clot, amniotic fluid and some debris. The endometrial cavity was then sharply curettaged in all four quadrants to good uterine cry. The curved curette was reintroduced and all blood clot and debris evacuated from the uterus. The tenaculum was removed from the cervix. There was no bleeding from the puncture sites. There was minimal bleeding from the cervical os. The uterus had been 12 to 14-week size. Initiation of the procedure now was clamped down to about 8 to 10-week size and was nicely contracted. Sponge and needle counts were correct on completion of the procedure. Blood loss was around 200 mL. The patient tolerated the procedure well and was uneventfully awakened from her general anesthesia and transferred to the recovery room in stable condition with plans for discharge home PAR. Job ID: [id number] DocumentID: [id number] Dictated Date: 04/16/2021 12:57:02 Academic Assistant Date: 04/16/2021 18:01:15 Dictated By: HELIO PEACE MD
--- NOTE | 2021-04-27 06:29 | Anesthesia-General Post-Op ---
General Significant Intra-Op Events Notes post op completed 04/16 1400 Patient Condition Mental Status/LOC: Same as Preop Cardiovascular: Satisfactory Nausea/Vomiting: Absent Respiratory: Satisfactory Pain: Controlled Complications: Absent Post Op Complications Complications None Follow Up Care/Instructions Patient Instructions None needed. Anesthesia/Patient Condition Patient Condition Patient is doing well, no complaints, stable vital signs, no apparent adverse anesthesia problems. No complications reported per nursing. D/C home per [facility] Criteria: Yes MEIR LYNNE CRNA Apr 27, 2021 06:29
== END 2021-04-16 15:10 | disposition home or self-care (01) ==
LOC: SDC 10:51
PROVIDERS: ATTEND Obstetrics & Gynecology
DX: O02.0 Blighted ovum and nonhydatidiform mole (principal); K21.9 Gastro-esophageal reflux disease without esophagitis; F32.9 Major depressive disorder, single episode, unspecified; Z79.899 Other long term (current) drug therapy; Z90.49 Acquired absence of other specified parts of digestive tract; Z88.1 Allergy status to other antibiotic agents
CPT/HCPCS: 36415; 85025; 87081

== ENCOUNTER → 2021-05-04 | Outpatient (CLI) | payer MEDICAID ==
--- NOTE | 2021-05-04 19:23 | Diagnostic Imaging Report ---
EXAMINATION: Scoliosis standing. INDICATION: Deformity of the spine. AP standing views of the thoracic and lumbar spine were obtained. There is minimal dextroscoliosis of the lower thoracic spine. Using the Morrison method of analysis with the superior endplate of T5 and the inferior endplate of T11 as landmarks the measured angle of scoliosis is 5 degrees +/- 2 to 3 degrees. There is no evidence for any abnormal curvature of the lumbar spine. There is no fracture or acute bony abnormality noted. IMPRESSION: 1. There is minimal dextroscoliosis of the lower thoracic spine. The measured angle scoliosis is 5 degrees +/- 2 to 3 degrees. 2. There is no acute bony abnormality noted. Dictated by: Dictated on workstation # [id number]
== END ==
LOC: RAD FS 14:27
PROVIDERS: ATTEND Family Medicine
DX: M41.34 Thoracogenic scoliosis, thoracic region (principal)
CPT/HCPCS: 72081

== ENCOUNTER → 2021-05-20 | Outpatient (CLI) | payer MEDICAID ==
--- NOTE | 2021-05-20 15:57 | Diagnostic Imaging Report ---
PROCEDURE: Pelvic comp/transvaginal sonogram. TECHNIQUE: Complete transabdominal and transvaginal pelvic ultrasound was performed. In addition, limited pelvic Doppler was performed. INDICATION: Acute pelvic pain. FINDINGS: The uterus measures 8.9 x 5.6 x 3.5 cm. The endometrium is 3 mm in thickness. No myometrial mass is detected. The right ovary measures 3.5 x 2.6 x 2.2 cm and the left ovary measures 3.2 x 2.3 x 2.0 cm. Both ovaries contain small follicles. There is blood flow to both ovaries. No adnexal mass or free fluid is detected. IMPRESSION: Unremarkable transabdominal and transvaginal pelvic ultrasound. Dictated by: Dictated on workstation # [id number]
== END ==
LOC: RAD FS 14:40
PROVIDERS: ATTEND Family Medicine
DX: R10.2 Pelvic and perineal pain (principal)
CPT/HCPCS: 76830; 76856

== ENCOUNTER 2021-12-20 17:28 | Emergency (ER) | payer MEDICAID ==
[~2021-12-20 17:28] MED LIST changes: +CYCL10TA25 PO; -CYCL10TA9 PO; -DCS100C PO; +DOCU-239 PO
--- OUTSIDE RECORDS SUMMARY | 2021-12-20 17:32 | XMS REPORT | Clinical Summary ---
Author Author [facility] Organization [facility] Address Unknown Phone Unavailable Care Team Providers Care Platform Attendant Name Role Phone No Pcp, Na PCP Unavailable Source Comments Some departments are not documenting in the electronic medical record. If you d o not see the information that you expected, contact Release of Information in [facility] Information Management department at [phone] for further assistan ce in locating additional records.[facility] Allergies Comments Active Allergy Reactions Severity Noted Date Azithromycin HIVES Medium 12/27/2019 Medications End Date Status Medication Sig Dispensed Refills Start Date Active vit Take 1 tablet 0 calc,iron,folic ( by mouth VITAMIN PO) daily. Active fluoxetine (PROZAC) 20 mg Take 20 mg by 0 capsule mouth daily. Active blood sugar diagnostic Use one strip 300 strip 1 0 test strip as directed 0 four times daily while awake. Check fasting and 2 hour postprandial values daily (4 times a day) Active cephalexin (KEFLEX) 500 Take one 30 capsule 1 mg capsuleIndications: capsule by 0 prevention of bacterial mouth at urinary tract infection bedtime daily. Indications: urinary tract infection prevention Active metFORMIN (GLUCOPHAGE) Take two 180 tablet 1 500 mg tabletIndications: tablets by 0 gestational diabetes mouth at mellitus bedtime daily. Indications: diabetes during Active ferrous sulfate (IRON PO) Take by 0 mouth. Active Problems Problem Noted Date History of pyelonephritis during 0 Oral hypoglycemic controlled White classification A2 gestational diabetes 01/03/2020 mellitus (GDM) 32 weeks gestation of 12/27/2019 Hydronephrosis with renal and ureteral calculus obstr uction 12/27/2019 Supervision of normal first teen in [facility] 12/27/2019 Resolved Problems Problem Noted Date Resolved Date Hydronephrosis with obstructing calculus 12/27/2019 01/30/2020 Surgical History Surgery Date Site/Laterality Comments LAP CHOLECYSTECTOMY 03/27/2018 - 04/26/2018 Medical History Medical History Date Comments Hydronephrosis Psychiatric illness 2018 depress ion Depression Anxiety disorder Anemia Kidney stones Urinary tract infection Gestational diabetes Family History Medical History Relation Name Comments Diabetes Maternal Grandmother Hypertension Maternal Grandmother Diabetes Paternal Grandmother Relation Name Status Comments Maternal Grandmother Paternal Grandmother Social History Date Tobacco Use Types Packs/Day Years Used Never Smoker Smokeless Tobacco: Never Used Comments Alcohol Use Standard Drinks/Week Not Currently 0 (1 standard drink = 0.6 o z pure alcohol) Sex Assigned at Date Recorded Not on file Obstetrics History Term Pre Abrt (TAB) (SAB) (Ect) Mult Lvng Comments Grav Para 1 2 2 1 4 1 Date GA Total Labor Labor/2nd/3rd Weight Sex Delivery Anes PTL Dania A1 A5 Name Clin Outcome 12/17/2017 39w0d F Living Term 12/2018 SAB 03/2019 SAB Last Filed Vital Signs Reading Time Taken Comments Vital Sign 118/60 01/29/2020 11:14 AM TAILOR HELPER Blood Pressure 107 01/29/2020 11:14 AM TAILOR HELPER Pulse 36.9 C (98.4 F) 12/29/2019 12:06 PM TAILOR HELPER Temperature - - Respiratory Rate 99% 12/29/2019 12:06 PM TAILOR HELPER Oxygen Saturation - - Inhaled Oxygen Concentration 85.9 kg (189 lb 6.4 oz) 01/29/2020 11:14 AM TAILOR HELPER Weight 162.6 cm (5' 4") 01/29/2020 11:14 AM TAILOR HELPER Height 32.51 01/29/2020 11:14 AM TAILOR HELPER Body Mass Index Plan of Treatment Health Maintenance Due Date Last Done Comments DTAP/TDAP VACCINES ( - 2018 Tdap) HEPATITIS C SCREENING 2018 PHYSICAL (COMPREHENSIVE) 2018 EXAM CHLAMYDIA SCREENING 18-24 12/27/2020 12/27/2019 YEARS CERVICAL CANCER SCREENING 2021 INFLUENZA VACCINE 06/27/2021 11/02/2019 HPV VACCINES Completed 08/24/2015, 04/14/2015, 02/09/2015 HIV SCREENING Completed 12/27/2019 MENINGOCOCCAL VACCINE Aged Out No longer eligib le based on patient's age to (ACWY,Menactra) complete this topic Results Not on filefrom Last 3 Months Insurance Type Payer Benefit Subscriber ID Effective Phone Address Plan / Dates Group Medicaid [place] [employer] [place] [id number] 2018-P [address] [address] [id number] 1 Advance Directives 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 Care Teams Start Date End Date Platform Attendant Relationship Specialty 01/02/20 No Pcp, Na PCP - General
--- NOTE | 2021-12-20 17:40 | ED Lower Extremity ---
General Chief Complaint: Lower Extremity Stated Complaint: FALL, LT FOOT PAIN Source: patient Exam Limitations: no limitations History of Present Illness Date Seen by Provider: Dec 20, 2021 Time Seen by Provider: 17:32 Initial Comments 21-year-old female with no significant past medical history coming in due to left foot pain. Around 30 minutes prior to arrival she tripped on one of her kids closed with her left foot going inwards with distal left foot pain a fterwards. Difficult putting weight on it due to pain. Has not taken any meds for it. Pain is moderate, constant, sharp in her left foot and better with rest. Did not hit her head or pass out. Is otherwise denying any other acute complaints. Currently menstruating. Allergies and Home Medications Allergies Coded Allergies: azithromycin (Verified Allergy, Unknown, HIVES, 01/21/19) Patient Home Medication List Home Medication List Reviewed: Yes Cephalexin (Cephalexin) 500 Mg Capsule, 500 MG PO QID, (Reported) Entered as Reported by: JOSEFINA LOZA on 04/13/21 1100 Omeprazole (Omeprazole) 20 Mg Tablet.dr, 20 MG PO DAILY, (Reported) Entered as Reported by: JOSEFINA LOZA on 04/13/21 1100 Onb115/Iron Fumarate/FA/Dss ( 19 Tablet) 1 Each Tablet, 1 EACH PO DAILY, (Reported) Entered as Reported by: SOHAN ORTEZ on 11/01/192031 Review of Systems Constitutional: No chills, No fever EENTM: No blurred vision Respiratory: No cough, No short of breath Cardiovascular: No chest pain Gastrointestinal: No abdominal pain Genitourinary: no symptoms reported Musculoskeletal: joint pain Skin: no symptoms reported Psychiatric/Neurological: No Symptoms Reported All Other Systems Reviewed Negative Unless Noted: Yes Past Taalbqf-Chnwjy-Sivedn Hx Patient Social History Tobacco Use?: No Use of E-Cig and/or Vaping dev: No Substance use?: No Alcohol Use?: No Pt feels they are or have been: No Immunizations Up To Date Tetanus Booster (TDap): Unknown Seasonal Allergies Seasonal Allergies: Yes Past Medical History Surgeries: Yes Gallbladder Respiratory: No Cardiac: No Neurological: No Female Reproductive Disorders: Ovarian Cyst Sexually Transmitted Disease: No HIV/AIDS: No Genitourinary: Yes (CHRONIC YEAST INFECTIONS (WHILE )) UTI-Chronic Gastrointestinal: Yes Gastroesophageal Reflux, Chronic Constipation Musculoskeletal: Yes Scoliosis Endocrine: No HEENT: Yes (WEARS CONTACTS) Hearing Impairment: Denies Cancer: No Psychosocial: Yes Anxiety, Depression Integumentary: No Blood Disorders: Yes (ANEMIA) Physical Exam Vital Signs Vital Signs - First Documented 12/20/21 17:36 Temp 36.4 Pulse 90 Resp 16 B/P (MAP) 137/85 (102) Pulse Ox 100 O2 Delivery Room Air Capillary Refill : Height, Weight, BMI Height: 5'4.00" Weight: 185lbs. 0.0oz. 83.089415zs; 25.56 BMI Method:Stated General Appearance: WD/WN, no apparent distress HEENT: PERRL/EOMI, normal ENT inspection, pharynx normal Neck: non-tender, full range of motion, supple, normal inspection Cardiovascular: regular rate, rhythm, no edema, no murmur Respiratory: chest non-tender, lungs clear, normal breath sounds, no respiratory distress, no accessory muscle use Gastrointestinal: normal bowel sounds, non tender, soft; No distended, No guarding, No rebound Hips: bilateral hip non-tender, bilateral hip normal inspection, bilateral hip normal range of motion, bilateral hip no evidence of injury Legs: bilateral leg non-tender, bilateral leg normal inspection, bilateral leg normal range of motion, bilateral leg no evidence of injury Knees: bilateral knee non-tender, bilateral knee normal inspection, bilateral knee normal range of motion, bilateral knee no evidence of injury Ankles: bilateral ankle non-tender, bilateral ankle normal inspection, bilateral ankle normal range of motion, bilateral ankle no evidence of injury Feet: right foot non-tender, right foot normal inspection, right foot normal range of motion, right foot no evidence of injury; left foot bone tenderness (distal 4th metatarsal is the point of maximal tenderness, no lisfranc tenderness, no pain along proximal 5th metatarsal, achilles intact) Neurologic/Tendon: normal sensation, normal motor functions, normal tendon functions Neurologic/Psychiatric: no motor/sensory deficits, alert, normal mood/affect Skin: normal color, warm/dry Lymphatic: no adenopathy Progress/Results/Core Measures Results/Orders My Orders Orders - TAISHA KAPOOR MD Foot 3 View Left (12/20/21 17:36) Ibuprofen Tablet (Motrin Tablet) (12/20/21 17:45) Acetaminophen Tablet (Tylenol Tablet) (12/20/21 17:45) Medications Given in ED Current Medications Medications Dose Ordered Sig/Starr Route Start Time Stop Time Status Last Admin Dose Admin Acetaminophen 1,000 mg ONCE ONCE PO 12/20/21 17:45 12/20/21 17:46 DC 12/20/21 17:53 1,000 MG Ibuprofen 600 mg ONCE ONCE PO 12/20/21 17:45 12/20/21 17:46 DC 12/20/21 17:53 600 MG Vital Signs/I&O 12/20/21 12/20/21 17:36 17:53 Temp 36.4 36.4 Pulse 90 Resp 16 B/P (MAP) 137/85 (102) Pulse Ox 100 O2 Delivery Room Air Progress Progress Note : Progress Note 21yoF with above history coming in due to left foot pain after tripping. ABCs were intact and vitals were stable on presentation. Physical exam with left distal fourth metatarsal tenderness maximally. She was given ibuprofen and Tylenol for pain. X-ray ordered to assess for fracture. On my interpretation of the x-ray there is no fracture or dislocation. Likely the patient has a bony contusion versus sprain. I believe she is stable for discharge with outpatient follow-up. She was sent home with strict return precautions. She was given a postoperative shoe to help with pain management. Diagnostic Imaging Diagonstic Imaging: Xray (left foot) Comments N VIA [facility]. [place], [place] NAME: [facility] REC#: [id number] PT STATUS: REG ER : 2000 PHYSICIAN: TAISHA KAPOOR MD ADMIT DATE: 12/20/21/ER FS Draft Date of Exam:12/20/21 FOOT 3 VIEW LEFT INDICATION: Fall, pain. FINDINGS: Three view left foot showed no fracture, dislocation or opaque foreign body. In particular, the 4th metatarsal and its tarsal relationship appeared normal. IMPRESSION: Unremarkable 3 view left foot. Dictated on workstation # [id number] Dict: 12/20/211745 Trans: 12/20/211748 [facility] [id number] Interpreted by: JAQUI ARAIZA Electronically signed by: Departure Impression Primary Impression: Contusion of foot Qualified Codes: S90.32XA - Contusion of left foot, initial encounter Disposition: 01 HOME, SELF-CARE Condition: Stable Departure-Patient Inst. Decision time for Depature: 17:57 Referrals: ENOC MERRILL MD (PCP/Family) Primary Care Physician LADARIUS FLORIAN Patient Instructions: Foot Sprain (DC) Add. Discharge Instructions: Fortunately there is nothing broken on your x-ray. Is likely a bone bruise call ed a contusion or a sprain of your foot. You can try the shoe that we gave you to help with pain control. Take ibuprofen 600 mg every 6 hours as well as Tylenol 1000 mg every 6-8 hours for your pain. Icing it for 20 minutes at a time multiple times a day would also be helpful. If the pain is not significantly better within the week I would follow-up with Genaro Florian who is an admission specialist here in [facility]. Work/School Note: Work Release Form Date Seen in the Emergency Department: Dec 20, 2021 Return to Work: Dec 22, 2021 Restrictions: No Restrictions TAISHA KAPOOR MD Dec 20, 2021 17:40
[2021-12-20] MEDS ORDERED: ACETAMINOPHEN 500 MG TAB (TYLENOL) PO ONE (17:45)
[2021-12-20] MEDS ORDERED: IBUPROFEN 600 MG (MOTRIN) TAB PO ONE (17:45)
--- NOTE | 2021-12-20 17:50 | Diagnostic Imaging Report ---
INDICATION: Fall, pain. FINDINGS: Three view left foot showed no fracture, dislocation or opaque foreign body. In particular, the 4th metatarsal and its tarsal relationship appeared normal. IMPRESSION: Unremarkable 3 view left foot. Dictated by: Dictated on workstation # [id number]
[2021-12-20 18:05] VITALS: BP 125/72
== END 2021-12-20 18:04 | disposition home or self-care (01) ==
LOC: EDUNIT# 17:28 → ER FS 17:29
DX: S90.32XA Contusion of left foot, initial encounter (principal); K21.9 Gastro-esophageal reflux disease without esophagitis; Z79.899 Other long term (current) drug therapy; W18.30XA Fall on same level, unspecified, initial encounter
CPT/HCPCS: 73630

== ENCOUNTER 2022-05-11 13:46 | Emergency (ER) | payer MEDICAID ==
[~2022-05-11] VITALS: Ht 165 cm; Wt 80.0 kg
[~2022-05-11 13:46] MED LIST changes: +OMEP20TA56 PO; -OMEP20TA7 PO
[2022-05-11 13:54] VITALS: BP 137/75
[2022-05-11] MEDS ORDERED: KETOROLAC 60 MG/2 ML VIAL IM ONE (14:00)
--- NOTE | 2022-05-11 14:06 | ED Chest Pain ---
General Chief Complaint: Chest Pain Stated Complaint: CHEST/BACK PAINS Nursing Triage Note: Patient has ambualted to ER with cc of chest pain. She reports that the pain is burning for the last 2 days. She denies any trauma or injury. She reports the pain is worse when she takes a breath, talks, or moves her upper body. She has taken tylenol for the pain. Source: patient Exam Limitations: no limitations History of Present Illness Date Seen by Provider: May 11, 2022 Time Seen by Provider: 13:45 Initial Comments Patient is a 22-year-old female presents with nasal congestion rhinorrhea, sore throat and chest wall pain worse with deep breathing for the past 2 days. Pain radiates to her back. No fever chills, nausea vomiting or sweats. No shortness of breath or wheezing. No leg pain or swelling. No other acute symptoms or complaints. Patient has a Implanon control implant. Timing/Duration: 1-2 days Severity/Quality: moderate Location: other Radiation: other Activities at Onset: other Prior CP/Workup: other Modifying Factors: improves with other Allergies and Home Medications Allergies Coded Allergies: azithromycin (Verified Allergy, Unknown, HIVES, 01/21/19) Patient Home Medication List Home Medication List Reviewed: Yes Cephalexin (Cephalexin) 500 Mg Capsule, 500 MG PO QID, (Reported) Entered as Reported by: JOSEFINA LOZA on 04/13/21 1100 Omeprazole (Omeprazole) 20 Mg Tablet.dr, 20 MG PO DAILY, (Reported) Entered as Reported by: JOSEFINA LOZA on 04/13/21 1100 Wlx809/Iron Fumarate/FA/Dss ( 19 Tablet) 1 Each Tablet, 1 EACH PO DAILY, (Reported) Entered as Reported by: SOHAN ORTEZ on 11/01/192031 Review of Systems Review of Systems Constitutional: see HPI EENTM: See HPI Respiratory: See HPI Gastrointestinal: See HPI Genitourinary: See HPI Musculoskeletal: see HPI Skin: see HPI Psychiatric/Neurological: See HPI Endocrine: See HPI All Other Systems Reviewed Negative Unless Noted: Yes Past Wqjeqii-Imoiwy-Cgrysz Hx Patient Social History Tobacco Use?: Yes Use of E-Cig and/or Vaping dev: No Substance use?: No Alcohol Use?: No Immunizations Up To Date Tetanus Booster (TDap): Unknown Seasonal Allergies Seasonal Allergies: Yes Past Medical History Surgeries: Yes Gallbladder Respiratory: No Cardiac: No Neurological: No Female Reproductive Disorders: Ovarian Cyst Sexually Transmitted Disease: No HIV/AIDS: No Genitourinary: Yes (CHRONIC YEAST INFECTIONS (WHILE )) UTI-Chronic Gastrointestinal: Yes Gastroesophageal Reflux, Chronic Constipation Musculoskeletal: Yes Scoliosis Endocrine: No HEENT: Yes (WEARS CONTACTS) Hearing Impairment: Denies Cancer: No Psychosocial: Yes Anxiety, Depression Integumentary: No Blood Disorders: Yes (ANEMIA) Physical Exam Vital Signs Vital Signs - First Documented 05/11/22 13:54 Temp 37.5 Pulse 105 Resp 16 B/P (MAP) 137/75 (95) Pulse Ox 95 O2 Delivery Room Air Capillary Refill : Height, Weight, BMI Height: 5'4.00" Weight: 185lbs. 0.0oz. 83.391353uq; 29.00 BMI Method:Stated General Appearance: No Apparent Distress, WD/WN HEENT: PERRL/EOMI, Normal ENT Inspection, Pharynx Normal Neck: Full Range of Motion, Non Tender Respiratory: Lungs Clear, Normal Breath Sounds Cardiovascular: Regular Rate, Rhythm Gastrointestinal: Non Tender, Soft Extremity: Non Tender Focused Exam Sepsis Stage: Ruled Out Progress/Results/Core Measures Results/Orders Lab Results Laboratory Tests Test 05/11/22 14:00 Range/Units Influenza Type A Antigen NEGATIVE NEGATIVE Influenza Type B Antigen NEGATIVE NEGATIVE My Orders Orders - SAMY FISHER DO Influenza A & B Antigens (05/11/22 13:54) Ekg Tracing (05/11/22 13:54) Chest 1 View Ap/Pa Only (05/11/22 13:54) Ketorolac Injection (Toradol Injection) (05/11/22 14:00) Urinalysis (05/11/22 14:19) Medications Given in ED Current Medications Medications Dose Ordered Sig/Starr Route Start Time Stop Time Status Last Admin Dose Admin Ketorolac Tromethamine 60 mg ONCE ONCE IM 05/11/22 14:00 05/11/22 14:01 DC 05/11/22 14:05 60 MG Vital Signs/I&O 05/11/22 13:54 Temp 37.5 Pulse 105 Resp 16 B/P (MAP) 137/75 (95) Pulse Ox 95 O2 Delivery Room Air Blood Pressure Mean: 95 Departure Communication (Admissions) EKG: Normal sinus rhythm, no acute ST-T wave changes Chest x-ray: NAD Influenza negative Symptoms consistent with acute viral syndrome. Recommendations are for supportive care, watchful waiting and PCP follow up return precautions reviewed. Impression Primary Impression: Acute viral syndrome Additional Impression: Chest wall pain Disposition: HOME, SELF-CARE Condition: Stable Departure-Patient Inst. Decision time for Depature: 14:32 Referrals: ENOC MERRILL MD (PCP/Family) Primary Care Physician Patient Instructions: Pleuritic Chest Pain, Viral Syndrome (DC) Add. Discharge Instructions: You were evaluated in the emergency department for sore throat and chest wall pain. Lab EKG and imaging studies were performed and are nondiagnostic. Your symptoms most consistent with viral syndrome with inflammation of chest wall. Please take newly prescribed medications as directed increase fluids and follow- up with your PCP for reevaluation. Return to the ED if new or worsening symptoms. All discharge instructions reviewed with patient and/or family. Voiced understanding. Scripts Guaifenesin/Pseudoephedrne HCl (Mucinex D ER 600-60 mg Tablet) 600 Mg-60 Mg Tab.er.12h 1 EACH PO BID, #10 TAB Prov: SAMY FISHER DO 05/11/22 Naproxen (Naproxen) 500 Mg Tablet 500 MG PO Q12H for Renal Colic for 3 Days, #20 TAB Prov: SAMY FISHER DO 05/11/22 SAMY FISHER DO May 11, 2022 14:06
--- NOTE | 2022-05-11 14:18 | Diagnostic Imaging Report ---
INDICATION: Chest pain. TECHNIQUE: Frontal chest obtained at 02:08 p.m. FINDINGS: Heart and mediastinal silhouette are normal in appearance. The lungs are clear. There is no pneumothorax or pleural fluid. IMPRESSION: Negative chest. Dictated by: Dictated on workstation # [id number]
[2022-05-11] MEDS ORDERED: NAPR-915 PO (14:38)
[2022-05-11] MEDS ORDERED: GUAI-370 PO (14:38)
[2022-05-11 14:44] LABS: AMORPHOUS SEDIMENT,UR LARGE AMOR PHOSPHATE /LPF; BACTERIA,URINE NEGATIVE /HPF; BILIRUBIN,URINE NEGATIVE (NEGATIVE); CLARITY,URINE CLOUDY; COLOR,URINE YELLOW; GLUCOSE, URINE (UA) NEGATIVE (NEGATIVE); KETONES,URINE NEGATIVE (NEGATIVE); LEUKOCYTE ESTERASE ,URINE NEGATIVE (NEGATIVE); NITRITE,URINE NEGATIVE (NEGATIVE); PH,URINE 7.5 (5-9); PROTEIN,URINE NEGATIVE (NEGATIVE)
== END 2022-05-11 14:55 | disposition home or self-care (01) ==
LOC: EDUNIT# 13:46 → ER FS 13:48
DX: B34.9 Viral infection, unspecified (principal)
CPT/HCPCS: 71045; 81000; 87804; 93005